=== PATIENT | male | born 1970 | race Caucasian/White ===

== ENCOUNTER 2017-12-13 20:32 | Inpatient (IN) | payer BC ==
[~2017-12-13] VITALS: Ht 175.3 cm; Wt 83.5 kg
--- NOTE | 2017-12-13 20:32 | NUR ---
TO BED 5 A 47 YO MALE PT BIBA#102 FROM HOME, PT WAS FOUND ALTERED AT HOME UNKNOWN LAST KNOWN WELL TIME. UPON ARRIVAL, PATIENT IS UNRESPONSIVE AND HYPOVENTILATING. PLACED PATIENT ON CARDIAC AND VS MONITORING. DR GOODE AT BEDSIDE TO ASSESS PATIENT. RT AT BEDSIDE. WELL. SAFETY MEASURES INITIATED.
--- NOTE | 2017-12-13 20:33 | NUR ---
STARTED A SALINE LOCK ON THE LEFT HAND G18, BLOOD DRAWN AND SENT TO LAB. PATIENT ALSO HAS AND INTACT AND PATENT IV FROM EMS AT THE RIGHT HAND G20.
--- NOTE | 2017-12-13 20:36 | NUR ---
MEDICATED PATIENT WITH PROPOFOL 100MG IVP PER DR GOODE'S ORDERS PRIOR TO INTUBATION.
--- NOTE | 2017-12-13 20:37 | NUR ---
DR GOODE PLACED A SIZE 8 ETT AT 26 CM ON THE LIP. EQUAL BREATH SOUNDS HEARD UPON AUSCULTATION AND COLOR CHANGE NOTED ON THE CAPNO.
--- NOTE | 2017-12-13 20:38 | NUR ---
PLACED PATIENT ON MECH VENT WITH SETTINGS FOLLOWS AC , RATE 16, TV 450, FIO2 80, PEEP 0. MAINTAINED PATIENT'S PATENT AIRWAY. SATTING AT 98-100% AT THIS TIME.
--- NOTE | 2017-12-13 20:40 | NUR ---
PLACED AND OGT ON PATIENT PER DR GOODE'S VERBAL ORDER, MARKED AT 65. GURGLING SOUND HEARD UPON AUSCULTATION ON THE EPIGASTRIC AREA. CLEAR WATERY SECRETIONS DRAINED. XR AT BEDSIDE TO CONFIRM ETT AND OGT PLACEMENT.
[2017-12-13 20:51] LABS: BASOPHILS # (AUTO) 0.1 /CMM (0.0-0.2); BASOPHILS % (AUTO) 1.2 % (0.0-2.0); EOSINOPHILS % (AUTO) 0.1 % (0.0-6.0); HEMATOCRIT 47 % (39-51); HEMOGLOBIN 15.9 g/dL (13.5-17.5); LYMPHOCYTES # (AUTO) 1.3 /CMM (0.8-4.8); MEAN CORPUSCULAR HEMOGLOBIN 34 PG (26.0-33.0); MEAN CORPUSCULAR HGB CONC 34 g/dl (31.0-36.0); MEAN CORPUSCULAR VOLUME 101 fL (80-96); MONOCYTES # (AUTO) 0.9 /CMM (0.1-1.30); MONOCYTES % (AUTO) 7.5 % (2.0-12.0); NEUTROPHILS # (AUTO) 9.3 /CMM (1.8-8.9); NEUTROPHILS % (AUTO) 80.2 % (43.0-81.0); PLATELET COUNT (AUTO) 63 /CMM (150-450); RDW COEFFICIENT OF VARIATION 12.2 (11.5-15.0); RED BLOOD CELL COUNT(AUTO) 4.67 MIL/uL (4.5-6.0); WHITE BLOOD COUNT (AUTO) 11.6 K/uL (4.3-11.0)
--- NOTE | 2017-12-13 20:58 | NUR ---
CALLED NURSING SUP. FOR ICU BED
[2017-12-13] MEDS ORDERED: LORAZEPAM INJ 2 MG/ML VIAL ONE (20:59)
[2017-12-13] MEDS ORDERED: ONDANSETRON HCL/PF 4 MG/2 ML VIAL ONE (20:59)
[2017-12-13 21:00] VITALS: BP 61/42
[2017-12-13] MEDS ORDERED: PROPOFOL 100 ML ONE ×2 (21:00→21:18)
[2017-12-13] MEDS ORDERED: ONDANSETRON HCL/PF 4 MG/2 ML VIAL IVP ONE (21:00)
[2017-12-13] MEDS ORDERED: IV NS 0.9% 1,000 ML BAG IV ONE ×2 (21:00)
[2017-12-13] MEDS ORDERED: NOREPINEPHRINE 8 MG in IV D5W 500 ML IV ONE (21:00)
[2017-12-13] MEDS ORDERED: NOREPINEPHRINE 4 MG/4 ML AMPUL IV ONE (21:01)
--- NOTE | 2017-12-13 21:04 | NUR ---
RT PT INTUBATED BY ER MD GOODE WITH 8.0 @ 26CM LIP. POSITIVE CO2 COLOR CHANGE. BREATHS SOUND BILATERAL WITH POSITIVE CHEST RISE/FALL. ETT PATENT AND SECURE VIA ACHOR FAST. PT PLACED ON VENT WITH NOTED SETTING PER MD VERBAL ORDERS. VENT PLUGGED IN TO RED OUTLET. AMBU BAG AT [facility]. ALARMS SET AND AUDIBLE. NO SOB OR DISTRESS NOTED.WILL CONTINUE TO MONITOR. Addendum: 12/13/17 at 2108 by ZACKARY SANCHEZ RT Amended: Links added.
[2017-12-13 21:05] LABS: INR 1.04 (0.87-1.13)
[2017-12-13 21:09] LABS: ALANINE AMINOTRANSFERASE 58 U/L (12-78); ALBUMIN 3.4 g/dL (3.4-5.0); ALKALINE PHOSPHATASE 114 U/L (46-116); ASPARTATE AMINOTRANSFERASE 145 U/L (15-37); BILIRUBIN,DIRECT 2.8 mg/dL (0.0-0.2); BILIRUBIN,TOTAL 4.5 mg/dL (0.2-1.0); CALCIUM, SERUM 9.7 mg/dL (8.5-10.1); CHLORIDE 89 mmol/L (98-107); CREATININE 3.1 mg/dL (0.6-1.3); GLUCOSE 337 mg/dL (74-106); POTASSIUM 4.4 mmol/L (3.5-5.1); SODIUM SERUM 129 mmol/L (136-145); TOTAL PROTEIN, SERUM 7.6 g/dL (6.4-8.2); UREA NITROGEN, BLOOD 18 mg/dL (7-18)
[2017-12-13 21:11] LABS: TROPONIN I < 0.017 ng/mL (0.00-0.056)
[2017-12-13 21:15] LABS: SERUM AMMONIA 192 umol/L (11-32)
[2017-12-13 21:18] LABS: CARBON DIOXIDE 9 mmol/L (21-32)
[2017-12-13 21:20] LABS: ACETAMINOPHEN 0 ug/ml (10-30); ALCOHOL, BLOOD < 5 mg/dL (0-0); SALICYLATE < 2.0 mg/dL (2.8-20.0)
[2017-12-13 21:21] LABS: THYROID STIMULATING HORMONE 14.365 uIU/mL (0.358-3.74)
--- NOTE | 2017-12-13 21:21 | NUR ---
FRIEND AND ROOMATE, JOSSELYN MELENDEZ, , PLEASE CALL HIM IF PT GETS TRANSFERRED ANYWHERE.
--- NOTE | 2017-12-13 21:29 | NUR ---
DR GOODE AT BEDSIDE TO PLACE CENTRAL LINE.
[2017-12-13 21:38] LABS: BAND % (MANUAL) 22 % (0.0-5.0); BASOPHILS % (MANUAL) 2 % (0.0-2.0); LYMPHOCYTES % (MANUAL) 14 % (16-48); MONOCYTES % (MANUAL) 9 % (0-11.0); NEUTROPHILS % (MANUAL) 53 (42-76)
--- NOTE | 2017-12-13 21:50 | NUR ---
PT TO CT.
--- NOTE | 2017-12-13 21:57 | NUR ---
TAMMY PAGED, HAILEY BLANCO MEDICATION ADMINISTRATION PROFESSIONAL
--- NOTE | 2017-12-13 22:04 | NUR ---
BACK FROM CT SCAN.
--- NOTE | 2017-12-13 22:05 | NUR ---
ICU 264
[2017-12-13 22:06] LABS: BILIRUBIN,URINE 3+ (NEGATIVE); BLOOD, URINE 2+ Ery/uL (NEGATIVE); KETONES,URINE 2+ (NEGATIVE); LEUKOCYTE ESTERASE ,URINE NEGATIVE (NEGATIVE); NITRITE, URINE NEGATIVE (NEGATIVE); PROTEIN,URINE 2+ mg/dl (NEGATIVE); UGLUCOSE TRACE mg/dL (NEGATIVE); UROBILINOGEN,URINE >=8.0 EU/dL (0.2)
[2017-12-13 22:08] LABS: APPEARANCE,URINE SLIGHTLY CLOUDY (CLEAR); COLOR,URINE DARK YELLOW (YELLOW)
[2017-12-13] MEDS ORDERED: LACTULOSE 10 G/15 ML UDC (PYXIS) GT STA (22:10)
--- NOTE | 2017-12-13 22:10 | NUR ---
I ASKED AT THIS TIME DR GOODE TO PLACE IN THE ORDERS FOR PROPOFOL DRIP.
--- NOTE | 2017-12-13 22:10 | NUR ---
CALLED LAB FOR BLOOD CX DRAW
[2017-12-13 22:15] LABS: BACTERIA,URINE Moderate /HPF (None Seen); SQUAMOUS EPITHELIAL CELL,UR Few /HPF (None Seen); WBC,URINE 0-2 /HPF (0-3)
[2017-12-13] MEDS ORDERED: PROPOFOL 200 MG/20 ML VIAL IV ONE (22:30)
[2017-12-13] MEDS ORDERED: LORAZEPAM INJ 2 MG/ML VIAL IV ONE (22:30)
[2017-12-13 22:40] LABS: ABG BASE EXCESS -14.6 mmol/L; ABG PCO2 35.2 mmHg (35.0-45.0); ABG PH 7.179 (7.350-7.450); ABG PO2 239.6 mmHg (75.0-100.0); AaDO2 293.8 mmHg; COHb 0.3 % (0.5-1.5); MetHb 0.6 % (0.0-1.5); O2Hb 98.1 % (94.0-97.0); PEEP,BG 0 cm H2O; SITE, ABG Right Radial; VENT MODE, BG ac 16/450/80%/+0; VT, ABG 450 mL
--- NOTE | 2017-12-13 22:45 | NUR ---
REPORT GIVEN TO MEDINA NASH FOR ICU ADMSSION AND ASHLEE.
[2017-12-13] MEDS ORDERED: LACTULOSE 10 G/15 ML UDC (PYXIS) ONE (22:56)
[2017-12-13] MEDS ORDERED: Thiamine 100 MG/ML VIAL ONE (22:56)
[2017-12-13] MEDS ORDERED: LACTULOSE 10 G/15 ML UDC (PYXIS) NG PRN (23:00)
[2017-12-13] MEDS ORDERED: Thiamine 100 MG in IV D5W 50 ML IV SCH (23:00)
[2017-12-13] MEDS ORDERED: ACETAMINOPHEN 650 MG/SUPP.RECT RC PRN (23:00)
[2017-12-13] MEDS ORDERED: Z GUARD REMEDY 2 OZ OINT TP PRN (23:00)
[2017-12-13] MEDS ORDERED: ENOXAPARIN SODIUM 40 MG/0.4 ML DISP.SYRIN SQ SCH (23:00)
[2017-12-13] MEDS ORDERED: NOREPINEPHRINE 8 MG in IV D5W 500 ML IV PRN (23:00)
[2017-12-13] MEDS ORDERED: Thiamine 100 MG in IV D5W 50 ML IV ONE (23:28)
--- NOTE | 2017-12-13 23:51 | NUR ---
TRANSFERRED PATIENT TO ICU 264 VIA ALS PROTOCOL, NO INCIDENT NOTED.
[2017-12-13 23:54] VITALS: BP_SYST 100; BP_SYST 108; BP_DIAS 43; BP_DIAS 58
[2017-12-14] VITALS (72 sets, daily range): BP systolic 68–123; BP diastolic 42–72
--- NOTE | 2017-12-14 | NUR ---
RT RECEIVED PT INTUBATED ON [facility] VENT WITH NOTED SETTINGS. ETT 8.0 MARKED 26CM @ THE LIP. MAJOR LEAGUE BASEBALL PLAYER DONE AND ETT SECURE W/ ANCHOR FAST. BILATERAL B/S. VENTS ALARMS CHECKED AND AUDIBLE. VENT PLUGGED IN RED OUTLET. SX WITH SML WHITE WITH BLOOD TINGED SECRETIONS. AMBU BAG NOTED AT THE [facility]. NO RESP DISTRESS NOTED AT THIS TIME WILL CONTINUE TO MONITOR T/O SHIFT
[2017-12-14] MEDS: IV NS 0.9% 1,000 ML IV PRN ×6 (00:02→17:46)
[2017-12-14] MEDS ORDERED: Thiamine 100 MG/ML VIAL ONE (00:17)
[2017-12-14] MEDS ORDERED: ENOXAPARIN SODIUM 40 MG/0.4 ML DISP.SYRIN SQ ONE (00:18)
[2017-12-14] MEDS: PROPOFOL 100 ML IV PRN ×2 (00:22→03:22)
[2017-12-14 00:30] LABS: CREATINE KINASE MB 2.9 ng/mL (0-3.6)
[2017-12-14] MEDS ORDERED: NOREPINEPHRINE 16 MG in IV D5W 500 ML IV PRN ×2 (00:30→14:00)
[2017-12-14] MEDS ORDERED: NOREPINEPHRINE 8 MG in IV D5W 500 ML IV PRN ×4 (01:00)
--- NOTE | 2017-12-14 01:30 | NUR ---
RN NOTES ADMITTED 47 Y/O MALE PATIENT FROM ER VIA STRETCHER AWAKE AND RESTLESS. WITH ETT 8/ 26CM @ LIP CONNECTED TO VENT SETTING IS AC 16 TV 450 FIO2 80% NO PEEP NO HISTORY TAKEN AND NKDA. PLACED ON TELE MONITOR REVEALS ST HR 122. RECEIVED FROM ER WITH PROPOFOL @ 25 MCG/KG/MIN INCREASED TO 35MCG ON LEFT HAND AND LEVOPHED @ 12MCG/MIN ON RIGHT HAND INTACT AND PATENT. NS BOLUS STARTED ON LEFT HAND . NO ACUTE RESP DISTRESS. SKIN IS INTACT. KEPT PT CLEAN AND DRY. KEPT COMFORTABLE POSITION
[2017-12-14] MEDS ORDERED: ONDANSETRON HCL/PF 4 MG/2 ML VIAL ONE (02:16)
[2017-12-14] MEDS: ONDANSETRON HCL/PF 4 MG/2 ML VIAL IVP PRN (02:29)
[2017-12-14] MEDS ORDERED: NOREPINEPHRINE 4 MG/4 ML AMPUL IV ONE ×2 (02:51)
[2017-12-14 03:14] LABS: CALCIUM, SERUM 6.9 mg/dL (8.5-10.1); CREATININE 2.5 mg/dL (0.6-1.3)
[2017-12-14] MEDS ORDERED: PROPOFOL 100 ML ONE (03:17)
[2017-12-14 03:30] LABS: POTASSIUM 2.4 mmol/L (3.5-5.1)
[2017-12-14 03:31] LABS: MAGNESIUM 1.1 mg/dL (1.8-2.4); PHOSPHORUS 0.4 mg/dL (2.5-4.9)
--- NOTE | 2017-12-14 04:00 | NUR ---
RN NOTES LAB CALLED AND INFORMED REGARDING CRITICAL LAB RESULT NA 113 K 2.4 GLUCOSE 770 CHLORIDE 83 CALCIUM 6.9 PHOS[address] 0[address] BLANCO WITH ORDER TO REPEAT THE LAB AND DRAW IT ON PT LEGS. CHARGE NURSE AWARE.
[2017-12-14 05:15] LABS: ALBUMIN 2.9 g/dL (3.4-5.0); BILIRUBIN,TOTAL 6.5 mg/dL (0.2-1.0); CALCIUM, SERUM 8.3 mg/dL (8.5-10.1); CREATININE 2.6 mg/dL (0.6-1.3); MAGNESIUM 1.3 mg/dL (1.8-2.4); POTASSIUM 3.3 mmol/L (3.5-5.1); TOTAL PROTEIN, SERUM 6.4 g/dL (6.4-8.2)
[2017-12-14 05:21] LABS: PHOSPHORUS 0.6 mg/dL (2.5-4.9)
--- NOTE | 2017-12-14 05:30 | NUR ---
RN NOTES CALLED AND SPOKE TO DR. BLANCO INFORMED ABOUT THE LATEST LAB RESULT NA 130 K3.3 CL 97 CO2 17 ANION GAP 19 GLUCOSE 191 CA 8.3 BUN 18 CRE 2.6 MAG1.3 AND PHOS AND CRITICAL VALUES OF PHOS 0.6 WITH ORDER TO GIVE NEUTRAPHOS 4 PACKET VIA NGT AND MAGNESIUM IV 4 BAGS NOTED AND ACKNOWLEDGE ORDERS.
[2017-12-14 05:43] LABS: BASOPHILS % (AUTO) 0.1 % (0.0-2.0); HEMATOCRIT 41 % (39-51); HEMOGLOBIN 14.7 g/dL (13.5-17.5); LYMPHOCYTES # (AUTO) 0.8 /CMM (0.8-4.8); LYMPHOCYTES % (AUTO) 6.3 % (20.0-44.0); MEAN CORPUSCULAR HEMOGLOBIN 35 PG (26.0-33.0); MEAN CORPUSCULAR HGB CONC 36 g/dl (31.0-36.0); MEAN CORPUSCULAR VOLUME 98 fL (80-96); MONOCYTES # (AUTO) 0.9 /CMM (0.1-1.30); MONOCYTES % (AUTO) 7.2 % (2.0-12.0); NEUTROPHILS % (AUTO) 86.4 % (43.0-81.0); PLATELET COUNT (AUTO) 68 /CMM (150-450); RDW COEFFICIENT OF VARIATION 12.4 (11.5-15.0); RED BLOOD CELL COUNT(AUTO) 4.18 MIL/uL (4.5-6.0); WHITE BLOOD COUNT (AUTO) 12.8 K/uL (4.3-11.0)
--- NOTE | 2017-12-14 05:52 | NUR ---
RN NOTES CALLED [facility]ASS[facility] (MOM) AND GOT CONSENT FOR PICC LINE INSERTION WITNESS BY JOSSELYN HODGE RN
[2017-12-14 06:10] LABS: THYROID STIMULATING HORMONE 3.124 uIU/mL (0.358-3.74)
[2017-12-14 06:23] LABS: BAND % (MANUAL) 17 % (0.0-5.0); LYMPHOCYTES % (MANUAL) 6 % (16-48); METAMYELOCYTES % 1 % (0-0); MYELOCYTES % 1 % (0-0)
[2017-12-14 06:24] LABS: MONOCYTES % (MANUAL) 5 % (0-11.0); NEUTROPHILS % (MANUAL) 70 (42-76)
[2017-12-14] MEDS ORDERED: NEUTRA PHOS 1 POWD.PACKET NG ONE (06:30)
[2017-12-14] MEDS ORDERED: NEUTRA PHOS 1 POWD.PACKET ONE (06:44)
[2017-12-14] MEDS ORDERED: ENOXAPARIN SODIUM 40 MG/0.4 ML DISP.SYRIN SQ SCH (06:58)
[2017-12-14] MEDS: PROPOFOL 10MG/ML 50ML 50 ML IV PRN ×12 (07:26→22:58)
[2017-12-14] MEDS: Magnesium 1GM/D5W 100ML PREMIX 100 ML IV SCH ×4 (07:33→10:36)
--- NOTE | 2017-12-14 07:40 | NUR ---
RN NOTES PT STILL SEDATED. ETT AND VENT SETTING TOLERATED WELL. CONTINUE WITH DIPRIVAN AND PROPOFOL AT THIS TIME. NO ASE SHOWS. AFEBRILE. ALL DUE MEDICINE GIVEN ORDERED. KEPT PT CLEAN AND DRY. RESTRAINT KEPT ON IN SAULO. SOFT WRIST EXT. ENDORSED CONTINUITY OF CARE TO AM NURSE.
[2017-12-14 08:42] LABS: ABG BASE EXCESS -11.2 mmol/L; ABG OXYGEN SATURATION 98.1 % (92.0-98.5); ABG PCO2 24.3 mmHg (35.0-45.0); ABG PH 7.332 (7.350-7.450); ABG PO2 128.8 mmHg (75.0-100.0); AaDO2 128.5 mmHg; COHb 0.3 % (0.5-1.5); MetHb 1.1 % (0.0-1.5); O2Hb 96.7 % (94.0-97.0); PEEP,BG 0 cm H2O; SITE, ABG Right Radial
[2017-12-14] MEDS: RIFAXIMIN 550 MG TABLET PO SCH ×2 (09:43→16:14)
[2017-12-14] MEDS: LORAZEPAM INJ 2 MG/ML VIAL IV PRN ×3 (09:43→23:03)
[2017-12-14 10:12] LABS: CALCIUM, SERUM 7.5 mg/dL (8.5-10.1); CREATININE 2.4 mg/dL (0.6-1.3); MAGNESIUM 1.8 mg/dL (1.8-2.4); POTASSIUM 3.5 mmol/L (3.5-5.1)
[2017-12-14 10:13] LABS: PHOSPHORUS 0.3 mg/dL (2.5-4.9)
[2017-12-14] MEDS ORDERED: PANT40TA2 PO (12:30)
[2017-12-14] MEDS ORDERED: POTASSIUM PHOSPHATE MM IV SCH (12:30)
[2017-12-14] MEDS ORDERED: FOLI1TAB16 PO (12:30)
[2017-12-14] MEDS ORDERED: POTASSIUM PHOSPHATE MM 5 MMOL in IV D5W 100 ML IV SCH (12:30)
[2017-12-14] MEDS ORDERED: ONDA4TAB8 PO (12:30)
[2017-12-14] MEDS ORDERED: D5W IV SCH (12:30)
[2017-12-14] MEDS ORDERED: TEMA7.5C12 PO (12:30)
[2017-12-14 12:41] LABS: APPEARANCE,URINE CLOUDY (CLEAR); BILIRUBIN,URINE 3+ (NEGATIVE); BLOOD, URINE 3+ Ery/uL (NEGATIVE); COLOR,URINE YELLOW (YELLOW); KETONES,URINE 1+ (NEGATIVE); LEUKOCYTE ESTERASE ,URINE NEGATIVE (NEGATIVE); NITRITE, URINE POSITIVE (NEGATIVE); PH,URINE 5.5 (5.0-8.0); PROTEIN,URINE 2+ mg/dl (NEGATIVE); UGLUCOSE TRACE mg/dL (NEGATIVE)
[2017-12-14 13:00] LABS: BACTERIA,URINE Few /HPF (None Seen); RBC,URINE 21-50 /HPF (0-2); SQUAMOUS EPITHELIAL CELL,UR Few /HPF (None Seen)
[2017-12-14 13:01] LABS: URINE AMORPHOUS URATE Many /HPF (None Seen)
[2017-12-14 13:10] LABS: EOSINOPHIL,URINE None Seen
[2017-12-14] MEDS: POTASSIUM PHOSPHATE MM 15 MMOL in IV D5W 250 ML IV SCH ×2 (13:14→17:31)
[2017-12-14] MEDS: NOREPINEPHRINE 16 MG in IV D5W 500 ML IV PRN (14:36)
[2017-12-14 15:49] LABS: CALCIUM, SERUM 6.9 mg/dL (8.5-10.1); POTASSIUM 3.6 mmol/L (3.5-5.1)
[2017-12-14] MEDS: ACETAMINOPHEN 325 MG TABLET PO PRN ×2 (16:14→22:41)
[2017-12-14 16:37] LABS: CREATININE 2.1 mg/dL (0.6-1.3)
[2017-12-14 16:39] LABS: PHOSPHORUS 0.6 mg/dL (2.5-4.9)
--- NOTE | 2017-12-14 17:00 | NUR ---
RT NOTE: PATIENT RECEIVED ORALLY INTUBATED WITH 8.0 ETT SECURED AT 26 CM MID LIP (BITE BLOCK IN PLACE)ON ESPRIT VENT. ALARMS VERIFIED AND AUDIBLE. SUCTIONED AND LAVAGED SMALL-MODERATE AMOUNT OF THIN PEREZ/BLOOD TINGED SECRETIONS. VENT PLUGGED INTO RED OUTLET. AMBU BAG AT [facility].
--- NOTE | 2017-12-14 20:30 | NUR ---
PATIENT RECEIVED ORALLY INTUBATED WITH 8.0 ETT SECURED AT 26 CM MID LIP ON ESPRIT VENT. ALARMS VERIFIED AND AUDIBLE. SUCTIONED AND LAVAGED SMALL-MODERATE AMOUNT OF THIN PEREZ/BLOOD TINGED SECRETIONS. VENT PLUGGED INTO RED OUTLET. AMBU BAG AT [facility]. Addendum: 12/14/17 at 2030 by ARLETH BEJARANO RT Amended: Links added.
[2017-12-14] MEDS: POTASSIUM PHOSPHATE MM 5 MMOL in IV D5W 100 ML IV SCH ×2 (20:52→23:06)
[2017-12-14] MEDS ORDERED: Thiamine 100 MG in IV D5W 50 ML IV ONE (22:14)
[2017-12-14] MEDS ORDERED: RIFAXIMIN 550 MG TABLET PO SCH (22:30)
[2017-12-14 22:44] LABS: ABG BASE EXCESS -11.4 mmol/L; ABG OXYGEN SATURATION 98.3 % (92.0-98.5); ABG PCO2 27.8 mmHg (35.0-45.0); ABG PH 7.302 (7.350-7.450); ABG PO2 144.6 mmHg (75.0-100.0); AaDO2 72.6 mmHg; COHb 0.3 % (0.5-1.5); MetHb 0.7 % (0.0-1.5); O2Hb 97.3 % (94.0-97.0); PEEP,BG 0 cm H2O; SITE, ABG Left Radial; VENT MODE, BG VENT AC; VT, ABG 450 mL
[2017-12-15] VITALS (93 sets, daily range): BP systolic 78–120; BP diastolic 38–72
[2017-12-15] MEDS: IV NS 0.9% 1,000 ML IV PRN ×4 (01:58→22:00)
[2017-12-15] MEDS: PROPOFOL 10MG/ML 50ML 50 ML IV PRN ×3 (01:58→08:25)
[2017-12-15] MEDS ORDERED: LORAZEPAM INJ 2 MG/ML VIAL ONE (04:14)
[2017-12-15] MEDS: LORAZEPAM INJ 2 MG/ML VIAL IV PRN (04:16)
[2017-12-15 04:59] LABS: BASOPHILS % (AUTO) 0.3 % (0.0-2.0); EOSINOPHILS % (AUTO) 0.1 % (0.0-6.0); HEMATOCRIT 35 % (39-51); HEMOGLOBIN 13.4 g/dL (13.5-17.5); LYMPHOCYTES # (AUTO) 0.9 /CMM (0.8-4.8); LYMPHOCYTES % (AUTO) 8.4 % (20.0-44.0); MEAN CORPUSCULAR HEMOGLOBIN 37 PG (26.0-33.0); MEAN CORPUSCULAR HGB CONC 38 g/dl (31.0-36.0); MEAN CORPUSCULAR VOLUME 98 fL (80-96); MONOCYTES # (AUTO) 1.1 /CMM (0.1-1.30); MONOCYTES % (AUTO) 9.8 % (2.0-12.0); NEUTROPHILS # (AUTO) 8.7 /CMM (1.8-8.9); NEUTROPHILS % (AUTO) 81.4 % (43.0-81.0); PLATELET COUNT (AUTO) 74 /CMM (150-450); RDW COEFFICIENT OF VARIATION 12.7 (11.5-15.0); RED BLOOD CELL COUNT(AUTO) 3.59 MIL/uL (4.5-6.0); WHITE BLOOD COUNT (AUTO) 10.7 K/uL (4.3-11.0)
[2017-12-15 05:22] LABS: ALANINE AMINOTRANSFERASE < 6 U/L (12-78); ALBUMIN 2.4 g/dL (3.4-5.0); ALKALINE PHOSPHATASE 83 U/L (46-116); ASPARTATE AMINOTRANSFERASE 0 U/L (15-37); BILIRUBIN,TOTAL 6.9 mg/dL (0.2-1.0); CALCIUM, SERUM 6.7 mg/dL (8.5-10.1); CARBON DIOXIDE 14 mmol/L (21-32); CHLORIDE 94 mmol/L (98-107); CREATININE 2.7 mg/dL (0.6-1.3); GLUCOSE 208 mg/dL (74-106); MAGNESIUM 1.7 mg/dL (1.8-2.4); POTASSIUM 3.8 mmol/L (3.5-5.1); SODIUM SERUM 125 mmol/L (136-145); TOTAL PROTEIN, SERUM 5.8 g/dL (6.4-8.2); UREA NITROGEN, BLOOD 21 mg/dL (7-18)
[2017-12-15 05:25] LABS: CREATINE KINASE, TOTAL 995 U/L (39-308)
[2017-12-15 05:49] LABS: CREATINE KINASE MB 8.9 ng/mL (0-3.6)
[2017-12-15 06:01] LABS: BAND % (MANUAL) 9 % (0.0-5.0); LYMPHOCYTES % (MANUAL) 7 % (16-48); MONOCYTES % (MANUAL) 10 % (0-11.0); NEUTROPHILS % (MANUAL) 71 (42-76)
[2017-12-15 06:02] LABS: METAMYELOCYTES % 3 % (0-0)
--- NOTE | 2017-12-15 07:00 | NUR ---
ICU INITIAL NOTE RECEIVED REPORT FROM CHARITY CARRANZA, PT WAS RECEIVED SEDATION, INTUBATED, UNABLE TO FOLLOW COMMANDS, UNABLE TO MOVE EXTREMITIES, UNABLE TO TRACK, RESPONDS TO PAIN AND TACTILE STIMULI AT THIS TIME, PT HAS ETT 8.0/26 LIPLINE AC 20 TV 450 FIO2 35% PEEP 0, SATING WELL, NO S/S OF RESP.DISTRESS OR SOB NOTED AT THIS TIME, BREATHING IS UNLABORED AND EVEN, PT SUCTIONED, ORAL CARE PROVIDED,PT IS ON BEDSIDE MONITOR SHOWING SR IN 90'S, NO S/S OF CHEST PAIN OR DISCOMFORT AT THIS TIME, PT HAS OGT, CLAMPED AT THIS TIME, INTACT/PATENT , FLUSHING WELL, PT HAS F/C DRAINING URINE TO GRAVITY, PT HAS MECHE PICC LINE, L HAND #18G, C/D/I/PATENT, FLUSHING WELL, RUNNING DIPRIVAN @ 30MCG/MIN, NS @ 150ML/HR, LEVO @8MCG/MIN, NO S/S OF INFECTION/ INFILTRATION NOTED AT THIS TIME, ALL SAFETY MEASURES IN PLACE AT ALL TIMES, CALL LIGHT WITHIN EASY REACH, WILL MONITOR PT CLOSELY FOR CHANGES
[2017-12-15] MEDS: RIFAXIMIN 550 MG TABLET PO SCH ×2 (08:26→17:29)
--- NOTE | 2017-12-15 08:30 | NUR ---
icu note- pt father britt hurtado sr called, updated on pt condition, all questions and concerns answered
[2017-12-15] MEDS: NOREPINEPHRINE 16 MG in IV D5W 500 ML IV PRN (08:42)
--- NOTE | 2017-12-15 08:50 | NUR ---
sedation vacation- diprivan titrated per protocol, diprivan on hold, pt is able to open eyes, able to squeeze hands and wiggle toes, pt is still unable to track at this time, pt is able to squeeze hands for simple questions, bilateral wrist restraints remain in place for pt safety, will cont. to monitor pt closely. family at bedside, family educated.
[2017-12-15 09:31] LABS: ABG BASE EXCESS -10.4 mmol/L; ABG OXYGEN SATURATION 96.7 % (92.0-98.5); ABG PCO2 26.6 mmHg (35.0-45.0); ABG PH 7.334 (7.350-7.450); ABG PO2 95.9 mmHg (75.0-100.0); AaDO2 122.7 mmHg; COHb 0.3 % (0.5-1.5); MetHb 0.4 % (0.0-1.5); PEEP,BG 0 cm H2O; SITE, ABG Right Radial; VENT MODE, BG AC 20 450 35% +0; VT, ABG 450 mL
--- NOTE | 2017-12-15 09:47 | NUR ---
icu note- all family is at bedside, updated on condition, all questions and concerns answered. all needs met
[2017-12-15] MEDS ORDERED: Magnesium 1GM/D5W 100ML PREMIX 1 G in PREMIX 1 EA IV SCH (10:30)
[2017-12-15] MEDS ORDERED: POTASSIUM PHOSPHATE MM 15 MMOL in IV D5W 250 ML IV SCH (10:30)
--- NOTE | 2017-12-15 10:39 | NUR ---
icu note- per oc mother request, to restrict vistors to only pt's son ravindra, sister, brother, father. informed security, and md aware. faxed record request to mekhi herron
--- NOTE | 2017-12-15 11:10 | NUR ---
Pt terminally extubated per Beatris azlu RN notified. Family at bedside. Addendum: 12/15/17 at 1113 by JALIL ORR RT Amended: Links added. Addendum: 12/15/17 at 1323 by JALIL ORR RT Wrong pt. Supposed to be 265
--- NOTE | 2017-12-15 11:11 | NUR ---
Wrong note on 1110 264-1.
[2017-12-15] MEDS: Magnesium 1GM/D5W 100ML PREMIX 100 ML IV SCH ×2 (11:41→12:29)
[2017-12-15] MEDS: POTASSIUM PHOSPHATE MM 7.5 MMOL in IV D5W 100 ML IV SCH ×2 (13:30→16:28)
--- NOTE | 2017-12-15 20:08 | NUR ---
PATIENT RECEIVED ORALLY INTUBATED WITH 8.0 ETT SECURED AT 26 CM MID LIP ON VENT. ALARMS VERIFIED AND AUDIBLE. SUCTIONED AND LAVAGED MODERATE-LARGE AMOUNT OF THICK PEREZ SECRETIONS. VENT PLUGGED INTO RED OUTLET. AMBU BAG AT [facility]. Addendum: 12/16/17 at 0423 by ARLETH BEJARANO RT Amended: Links added.
[2017-12-15] MEDS: ENOXAPARIN SODIUM 40 MG/0.4 ML DISP.SYRIN SQ SCH (21:51)
[2017-12-16] VITALS (42 sets, daily range): BP systolic 107–137; BP diastolic 58–77
--- NOTE | 2017-12-16 01:10 | NUR ---
ICU/STEAM CONDITIONER OPERATOR ATIVAN 2MG GIVEN IVP BY CHARGE NURSE, AFTER CHARGE NURSE NOTIFIED ABOUT INCREASE HEART RATE AND RESPIRATORY RATE.
[2017-12-16] MEDS: LORAZEPAM INJ 2 MG/ML VIAL IV PRN ×2 (01:13→08:14)
--- NOTE | 2017-12-16 02:10 | NUR ---
ICU/TANK CAR RECONDITIONER PT HAD TEMP OF 100.6, TYLENOL 650MG GIVEN VIA N/G TUBE. COOLING MEASURES STATED. PT WAS TURNED AND REPOSITIONED FOR COMFORT AND CARE.
[2017-12-16] MEDS: ACETAMINOPHEN 325 MG TABLET PO PRN ×2 (02:27→22:00)
--- NOTE | 2017-12-16 03:20 | NUR ---
ICU/DYNAMITE PACKING MACHINE OPERATOR LEVO OFF AT THIS TIME BP IS STABLE.WILL CONTINUE TO MONITOR THIS PT
[2017-12-16] MEDS: IV NS 0.9% 1,000 ML IV PRN ×3 (05:16→22:26)
[2017-12-16 05:47] LABS: BASOPHILS % (AUTO) 0.5 % (0.0-2.0); EOSINOPHILS # (AUTO) 0.1 /CMM (0.0-0.7); EOSINOPHILS % (AUTO) 1.3 % (0.0-6.0); HEMATOCRIT 34 % (39-51); HEMOGLOBIN 11.9 g/dL (13.5-17.5); LYMPHOCYTES # (AUTO) 0.5 /CMM (0.8-4.8); LYMPHOCYTES % (AUTO) 8.1 % (20.0-44.0); MEAN CORPUSCULAR HEMOGLOBIN 34 PG (26.0-33.0); MEAN CORPUSCULAR HGB CONC 35 g/dl (31.0-36.0); MEAN CORPUSCULAR VOLUME 98 fL (80-96); MONOCYTES # (AUTO) 0.7 /CMM (0.1-1.30); MONOCYTES % (AUTO) 12.3 % (2.0-12.0); NEUTROPHILS # (AUTO) 4.4 /CMM (1.8-8.9); NEUTROPHILS % (AUTO) 77.8 % (43.0-81.0); PLATELET COUNT (AUTO) 72 /CMM (150-450); RDW COEFFICIENT OF VARIATION 13.1 (11.5-15.0); RED BLOOD CELL COUNT(AUTO) 3.46 MIL/uL (4.5-6.0); WHITE BLOOD COUNT (AUTO) 5.6 K/uL (4.3-11.0)
[2017-12-16 05:50] LABS: CALCIUM, SERUM 7.1 mg/dL (8.5-10.1); CREATININE 2.2 mg/dL (0.6-1.3); MAGNESIUM 2.2 mg/dL (1.8-2.4); POTASSIUM 3.2 mmol/L (3.5-5.1)
[2017-12-16 06:18] LABS: BAND % (MANUAL) 4 % (0.0-5.0); EOSINOPHILS % (MANUAL) 2 % (0-4); LYMPHOCYTES % (MANUAL) 9 % (16-48); METAMYELOCYTES % 1 % (0-0); MONOCYTES % (MANUAL) 13 % (0-11.0); MYELOCYTES % 1 % (0-0); NEUTROPHILS % (MANUAL) 70 (42-76)
--- NOTE | 2017-12-16 06:20 | NUR ---
ICU/PROMOTIONS ASSOCIATE PT'S FAMILY MEMBER CALLED, FATHER OF PT NAMED CURTIS. THE FATHER WAS ABLE TO VERIFY THE DATE OF AND GIVEN NAME OF MOTHER. GAVE SMALL UPDATE TO HIM. ASKED ABOUT VISITING HOURS WELL. PT'S FATHER WAS DEFERRED TO TALK WITH MOTHER.
--- NOTE | 2017-12-16 07:00 | NUR ---
ICU INITIAL NOTE RECEIVED REPORT FROM EMILIANO, PT WAS RECEIVED LETHARGIC, INTUBATED, ABLE TO FOLLOW SIMPLE COMMANDS , ABLE TO SQUEEZE HANDS AND WIGGLE TOES, UNABLE TO TRACK AT THIS TIME, RESPONDS TO NAME,PAIN AND TACTILE STIMULI AT THIS TIME, PT HAS ETT 8.0/26 LIPLINE AC 20 TV 450 FIO2 35% PEEP 0, SATING WELL, NO S/S OF RESP.DISTRESS OR SOB NOTED AT THIS TIME, BREATHING IS UNLABORED AND EVEN, PT SUCTIONED, ORAL CARE PROVIDED,PT IS ON BEDSIDE MONITOR SHOWING ST IN THE 100'S, NO S/S OF CHEST PAIN OR DISCOMFORT AT THIS TIME, PT HAS OGT, CLAMPED AT THIS TIME, INTACT/PATENT , FLUSHING WELL, PT HAS F/C DRAINING URINE TO GRAVITY, PT HAS MECHE PICC LINE, L HAND #18G, C/D/I/PATENT, FLUSHING WELL, RUNNING NS @ 150ML/HR, BILATERAL WRIST RESTRAINTS IN PLACE AT THIS TIME FOR PT SAFETY, RELEASED AND SKIN CHECK COMPLETED, NO S/S OF INFECTION/ INFILTRATION NOTED AT THIS TIME, ALL SAFETY MEASURES IN PLACE AT ALL TIMES, CALL LIGHT WITHIN EASY REACH, WILL MONITOR PT CLOSELY FOR CHANGES
[2017-12-16 07:55] LABS: COHb 0.3 % (0.5-1.5)
[2017-12-16 07:56] LABS: ABG BASE EXCESS -9.2 mmol/L; ABG OXYGEN SATURATION 96.7 % (92.0-98.5); ABG PCO2 30.3 mmHg (35.0-45.0); ABG PH 7.328 (7.350-7.450); ABG PO2 100.9 mmHg (75.0-100.0); AaDO2 113.4 mmHg; MetHb 0.3 % (0.0-1.5); O2Hb 96.1 % (94.0-97.0); PEEP,BG 0 cm H2O; SITE, ABG Right Radial; VENT MODE, BG AC 20 450 35% +0; VT, ABG 450 mL
[2017-12-16] MEDS: RIFAXIMIN 550 MG TABLET PO SCH ×2 (08:07→17:08)
--- NOTE | 2017-12-16 08:22 | NUR ---
icu note- pt noted with increased respiration, asked pt if hes having anxiety, pt squeezed my hand yes. ativan 2mg ivp given
--- NOTE | 2017-12-16 09:24 | NUR ---
icu note- oc mother requested homer medications, medications given to mother
--- NOTE | 2017-12-16 09:58 | NUR ---
icu note- family at bedside, updated on pt's condition, answered all questions and concerns. dr. hooker at bedside.
[2017-12-16] MEDS ORDERED: [UNRECOGNIZED DRUG - OTHER] NG PRN (11:00)
[2017-12-16 11:11] LABS: ALBUMIN 2.2 g/dL (3.4-5.0); BILIRUBIN,DIRECT 6.1 mg/dL (0.0-0.2); BILIRUBIN,TOTAL 7.1 mg/dL (0.2-1.0); TOTAL PROTEIN, SERUM 5.3 g/dL (6.4-8.2)
[2017-12-16] MEDS: POTASSIUM CL. PREMIX PERIPHER. 50 ML IV SCH ×3 (11:12→13:43)
[2017-12-16] MEDS ORDERED: FIBERSOURCE HN 1,000 ML BOTTLE GT PRN (12:00)
[2017-12-16 15:09] LABS: PTH, INTACT 9 pg/mL (15-65)
[2017-12-16 15:17] LABS: INR 1.12 (0.87-1.13)
[2017-12-16] MEDS: LACTULOSE 10 G/15 ML UDC (PYXIS) PO SCH ×2 (17:08→23:54)
--- NOTE | 2017-12-16 18:36 | NUR ---
RT NOTE PT IN STABLE CONDITION. PT MECHANICALLY VENTILATED VIA 8.0 ETT 26 CM AT LIP. SETTINGS PRESCRIBED. ALARMS SET PER PROTOCOL AND AUDIBLE. VENT PLUGGED IN TO RED OUTLET. AMBU BAG AT BED SIDE. NO DISTRESS NOTED. Addendum: 12/16/17 at 1837 by PEDRO OLIVO RT Amended: Links added.
[2017-12-16] MEDS: ENOXAPARIN SODIUM 40 MG/0.4 ML DISP.SYRIN SQ SCH (21:10)
--- NOTE | 2017-12-16 22:10 | NUR ---
ICU/STAFFING ANALYST PT HAS A TEMP 100.6, GAVE TYLENOL 650MG VIA O/G TUBE. PT WAS TURNED AND REPOSITIONED FOR CARE AND COMFORT.
[2017-12-16] MEDS: ONDANSETRON HCL/PF 4 MG/2 ML VIAL IVP PRN (23:53)
[2017-12-17] VITALS (39 sets, daily range): BP systolic 116–148; BP diastolic 64–101
--- NOTE | 2017-12-17 00:30 | NUR ---
ICU/PROGRAM COUNSELOR PT APPEARED TO BE GAGGING IN A MOTION TO VOMIT WHEN LAST SUCTIONED, ZOFRAN 2MG IVP GIVEN AT THIS TIME BY CHARGE NURSE. PT WAS THEN TURNED AND REPOSITIONED FOR COMFORT AND CARE.
--- NOTE | 2017-12-17 02:09 | NUR ---
PATIENT RECEIVED ORALLY INTUBATED WITH 8.0 ETT SECURED AT 26 CM MID LIP ON VENT. ALARMS SET AND AUDIBLE THROUGH OUT UNIT. PT SUCTIONED AND LAVAGED FOR MODERATE-LARGE AMOUNT OF THICK PEREZ SECRETIONS. VENT PLUGGED INTO RED OUTLET. AMBU BAG AT [facility]. WILL CONT TO MONITOR Addendum: 12/17/17 at 0211 by JOSSELYN HANSON RT Amended: Links added.
--- NOTE | 2017-12-17 02:30 | NUR ---
ICU/TREE GIRDLER PT'S N/G TUBE FEEDING RESIDUAL WAS 260ML, FEEDING WAS TURNED OFF. WHEN PT WAS ASKED IF HE HAD PAIN IN HIS STOMACH PT NODDED HIS HEAD SAID YES. PT WAS GIVEN LACTULOSE.
[2017-12-17] MEDS: IV NS 0.9% 1,000 ML IV PRN ×3 (03:29→17:29)
[2017-12-17 05:08] LABS: CALCIUM, SERUM 7.7 mg/dL (8.5-10.1); CREATININE 1.4 mg/dL (0.6-1.3)
[2017-12-17 05:20] LABS: MAGNESIUM 1.7 mg/dL (1.8-2.4); PHOSPHORUS 3.6 mg/dL (2.5-4.9)
[2017-12-17 05:35] LABS: POTASSIUM 2.8 mmol/L (3.5-5.1)
[2017-12-17 05:50] LABS: BASOPHILS % (AUTO) 0.2 % (0.0-2.0); EOSINOPHILS # (AUTO) 0.1 /CMM (0.0-0.7); EOSINOPHILS % (AUTO) 1.5 % (0.0-6.0); HEMATOCRIT 32 % (39-51); HEMOGLOBIN 11.3 g/dL (13.5-17.5); LYMPHOCYTES # (AUTO) 0.7 /CMM (0.8-4.8); LYMPHOCYTES % (AUTO) 8.4 % (20.0-44.0); MEAN CORPUSCULAR HEMOGLOBIN 35 PG (26.0-33.0); MEAN CORPUSCULAR HGB CONC 36 g/dl (31.0-36.0); MEAN CORPUSCULAR VOLUME 99 fL (80-96); MONOCYTES # (AUTO) 1.6 /CMM (0.1-1.30); MONOCYTES % (AUTO) 18.8 % (2.0-12.0); NEUTROPHILS # (AUTO) 5.9 /CMM (1.8-8.9); NEUTROPHILS % (AUTO) 71.1 % (43.0-81.0); PLATELET COUNT (AUTO) 85 /CMM (150-450); RDW COEFFICIENT OF VARIATION 12.4 (11.5-15.0); RED BLOOD CELL COUNT(AUTO) 3.23 MIL/uL (4.5-6.0); WHITE BLOOD COUNT (AUTO) 8.3 K/uL (4.3-11.0)
--- NOTE | 2017-12-17 06:31 | NUR ---
ICU/DAY HABILITATION SUPERVISOR POTASSIUM IS 2.8, MACHINE ENGINEER JOI WAS CALLED. GAVE ORDER FOR 60MEQ OF POTASSIUM. PT WAS TURNED AND REPOSITIONED FOR COMFORT AND CARE.
--- NOTE | 2017-12-17 07:53 | NUR ---
PT RECEIVED ON VENT SUPPORT VIA ET TUBE WITH PARAMETERS BELLOW ORDER: AC 20 VT 450 FIO2 35% NO PEEP B/S CLEAR BILATERAL. VENT PLUGGED INTO RED OUTLET WITH ALARMS ON AND FUNCTIONING. WANG @ [facility]. Addendum: 12/17/17 at 1730 by PITO WOLFE RT Amended: Links added.
--- NOTE | 2017-12-17 08:00 | NUR ---
ICU/RN AM SHIFT INITIAL NOTES RECEIVED PT ASLEEP, AROUSEABLE, OPEN EYES, RESPONDING TO TOUCH, EYES TRACTS. ON ETT 8.0 SIZE VENTILATOR SUPPORT WITH ET TUBE POSITION AT LIP 26, RATES SET PRESCRIBED, SATURATING @ 100%, SUCTIONED FOR AIRWAY CLEARANCE, LUNG SOUNDS DIMINISHED. ON TELE WITH SINUS TACHY, HR 105. SKIN & EYES JAUNDICED, WITH ON GOING INFUSION OF NS @ 150CC/HR, PICC LINE PATENT WITH NO S/S OF INFECTION. OG TUBE INTACT, FEEDING HELD D/T GASTRIC RESIDUAL. DELATORRE CATHETER INTACT NOTED WITH CLEAR YELLOW ORANGE URINE OUTPUT. BILATERAL WRISTS RESTRAINTS IN [place], RELEASED TO CHECK FOR CIRCULATION AN COMFORT THEN PLACED BACK. PT IS COMFORTABLE, SCHEDULED AM MEDS TO BE GIVEN. CL WITHIN REACHED AND SAFETY MAINTAINED. ON GOING MONITORING.
[2017-12-17 08:02] LABS: ALBUMIN 2.2 g/dL (3.4-5.0); BILIRUBIN,DIRECT 6.5 mg/dL (0.0-0.2); BILIRUBIN,TOTAL 7.7 mg/dL (0.2-1.0); TOTAL PROTEIN, SERUM 5.7 g/dL (6.4-8.2)
[2017-12-17] MEDS: LACTULOSE 10 G/15 ML UDC (PYXIS) PO SCH ×2 (08:51→17:05)
[2017-12-17] MEDS: RIFAXIMIN 550 MG TABLET PO SCH ×2 (08:51→17:06)
[2017-12-17] MEDS: POTASSIUM CL. PREMIX PERIPHER. 50 ML IV SCH ×6 (08:52→17:05)
[2017-12-17 09:02] LABS: ABG BASE EXCESS -4.7 mmol/L; ABG OXYGEN SATURATION 96.5 % (92.0-98.5); ABG PCO2 29.7 mmHg (35.0-45.0); ABG PH 7.417 (7.350-7.450); ABG PO2 91.6 mmHg (75.0-100.0); AaDO2 123.4 mmHg; COHb 0.3 % (0.5-1.5); MetHb 0.2 % (0.0-1.5); PEEP,BG 0 cm H2O; SITE, ABG Left Brachial; VT, ABG 450 mL
[2017-12-17] MEDS: Magnesium 1GM/D5W 100ML PREMIX 100 ML IV SCH ×2 (11:20→12:40)
[2017-12-17] MEDS: ACETAMINOPHEN 325 MG TABLET PO PRN (11:42)
--- NOTE | 2017-12-17 19:26 | NUR ---
ICU/RN AM SHIFT END NOTES PT MORE RESPONSIVE TO FAMILY MEMBERS, NODS TO ACKNOWLEDGE OR MAKING EYE CONTACT. GASTRIC RESIDUAL STILL WITH LARGE AMOUNTS, NO FEEDING DURING THE SHIFT. ALL NEEDS MET. PT ENDORSED TO PM NURSE TO CONTINUE CARE. CL WITHIN REACHED AND SAFETY MAINTAINED.
[2017-12-17] MEDS: ENOXAPARIN SODIUM 40 MG/0.4 ML DISP.SYRIN SQ SCH (20:43)
[2017-12-18] VITALS (33 sets, daily range): BP systolic 114–146; BP diastolic 67–89
[2017-12-18] MEDS: IV NS 0.9% 1,000 ML IV PRN ×2 (00:37→07:14)
[2017-12-18] MEDS: LACTULOSE 10 G/15 ML UDC (PYXIS) PO SCH ×4 (00:38→23:21)
[2017-12-18] MEDS: ACETAMINOPHEN 325 MG TABLET PO PRN ×2 (00:38→10:33)
[2017-12-18 04:43] LABS: CALCIUM, SERUM 7.7 mg/dL (8.5-10.1); MAGNESIUM 2.2 mg/dL (1.8-2.4)
[2017-12-18 04:58] LABS: ALBUMIN 2.1 g/dL (3.4-5.0); BILIRUBIN,DIRECT 6.7 mg/dL (0.0-0.2); BILIRUBIN,TOTAL 8.1 mg/dL (0.2-1.0); TOTAL PROTEIN, SERUM 5.6 g/dL (6.4-8.2)
[2017-12-18 05:21] LABS: POTASSIUM 2.7 mmol/L (3.5-5.1)
[2017-12-18 05:23] LABS: PHOSPHORUS 0.9 mg/dL (2.5-4.9)
--- NOTE | 2017-12-18 07:37 | NUR ---
VENT EDD GERBER FOR WEANING TRIAL PER ORDER: CPAP 5 PS 10 FIO2 35% Addendum: 12/18/17 at 0742 by PITO WOLFE RT Amended: Links added.
[2017-12-18] MEDS ORDERED: POTASSIUM PHOSPHATE MM 15 MMOL in IV D5W 250 ML IV ONE ×2 (08:00→12:00)
--- NOTE | 2017-12-18 08:00 | NUR ---
Initial Recieved report from mold shifter RN Natalie. pt on restraints pt intubated rtried to pull tube out. pt off sedation and no other drips but NS @ 100ml making urine mikayla color pt placed on CPAP by RT at 0730 ABG done at 0835 Peleg evaluating pt ABG results report to no change in ventilator settings of CPAP +5 ps 10 35% Family mother visiting pt. Called pharmcy for Phos 7.5Mmol and K+ lazaro 10mEQ.
[2017-12-18 08:58] LABS: ABG BASE EXCESS -1.8 mmol/L; ABG OXYGEN SATURATION 94.6 % (92.0-98.5); ABG PCO2 32.6 mmHg (35.0-45.0); ABG PO2 76.2 mmHg (75.0-100.0); AaDO2 135.5 mmHg; COHb 0.3 % (0.5-1.5); MetHb 1.1 % (0.0-1.5); O2Hb 93.3 % (94.0-97.0); SITE, ABG Left Brachial
[2017-12-18] MEDS: RIFAXIMIN 550 MG TABLET PO SCH ×2 (09:32→17:55)
[2017-12-18] MEDS: POTASSIUM CL. PREMIX PERIPHER. 50 ML IV SCH ×5 (10:22→14:30)
--- NOTE | 2017-12-18 10:40 | NUR ---
PT SUCTIONED FOR THIN PINK SECRETIONS INCREASED FIO2 FOR SATURATION OF 888% TO 40% RECTAL TEMPERATURE 100.0 GIVEN 650 TYLENOL CLOSED SHADES ON WINDOW AND STARTED FAN TO CIRCULATE AIR.
[2017-12-18] MEDS ORDERED: [UNRECOGNIZED DRUG - OTHER] NG PRN (11:00)
--- NOTE | 2017-12-18 11:11 | NUR ---
PT IS AWAKE AND FOLLOW COMMANDS, PLACED INTO COOL AEROSOL @ 40% ORDER. SPO2 95% HR 106 Addendum: 12/18/17 at 1113 by PITO WOLFE RT Amended: Links added.
[2017-12-18] MEDS: POTASSIUM PHOSPHATE MM 7.5 MMOL in IV D5W 100 ML IV SCH ×4 (12:13→17:52)
[2017-12-18] MEDS: Potassium Chloride 40 MEQ in IV NS 0.9% 1,000 ML IV PRN ×2 (12:15→23:05)
--- NOTE | 2017-12-18 12:40 | NUR ---
BRADLEY received a voicemail message from pt's mother Hailey requesting a verification of admission letter for her since she is trying to pay patient's bills. BRADLEY typed up verification of admission letter and gave it to pt' mother who was visiting bedside.
--- NOTE | 2017-12-18 19:17 | NUR ---
PT RCVD ON COOL AEROSOL 40%. PT IS ALERT AND AWAKE. NO RESPIRATORY DISTRESS NOTED AT THIS TIME.
--- NOTE | 2017-12-18 19:19 | NUR ---
CLOSING NOTE REPORT GIVEN TO CHUY DBA DEVELOPER RN. PT VSS AXO X2 POTASSIUM PHOSPHORUS #4 LEFT RUNNING. PT HAD 1 LOSSE BROWN STOOL. PT REMAINS ON T-PIECE NO RESPIRATORY DISTRESS NOTED.
--- NOTE | 2017-12-18 20:00 | NUR ---
Received pt on restraints, intubated, off sedation, IVF NS @ 100ml making urine mikayla color pt on CPAP COOL AEROSOL 40%. PT IS AWAKE ALERT, ABLE TO MOVE EXTREMITIES, NO PAIN, VITAL SIGNS STABLE, WILL CONTINUE TO MONITOR
[2017-12-18] MEDS: ENOXAPARIN SODIUM 40 MG/0.4 ML DISP.SYRIN SQ SCH (20:42)
[2017-12-19] VITALS (25 sets, daily range): BP systolic 106–149; BP diastolic 63–108
--- NOTE | 2017-12-19 03:30 | NUR ---
PT PULLED OUT ETT AND OGT, WHILE ON RESTRAINTS, PT IS AWAKE ALERT, VOICE IS HOARSE, PT PLACED ON 15L NRB, 02SAT >96%
--- NOTE | 2017-12-19 03:30 | NUR ---
PT SELF EXTUBATED, CHARITY STEELE NOTIFIED. PLACED ON NON REBREATHER 15L , PT TOLERATED THE NRB WITH THE SPO2 OF 98%, RESPIRATORY DISTRESS NOTED AT THIS TIME. Addendum: 12/19/17 at 0404 by ELANA MATHEWS RT NO STRIDOR NOTED AT THIS TIME, BS COARSE CRACKLES NOTED
--- NOTE | 2017-12-19 06:39 | NUR ---
PT LOWERED TO 12L SIMPLE MASK O2SAT 98%
[2017-12-19] MEDS: Potassium Chloride 40 MEQ in IV NS 0.9% 1,000 ML IV PRN ×3 (07:11→23:27)
--- NOTE | 2017-12-19 07:30 | NUR ---
initial PT SELF EXTUBATED AT 0330 THIS AM CURRENTLY ON SIMPLE MASK AT 7 LPM SATURATION 95% UPON EVALUATION PT WITH EXSPIRATORY WHEEZING RT CALLED RESPIRATORY OREDERS PLACED PT ALERT AND ORIENTED X 4 PT SPEAKING WITH SOFT VOICE C/O SORE THROAT . PT MOVES ALL EXTREMITIES LAB TO DRAWM AM LABS NOW. PT ON IV FLUIDS NS WITH 40 Meq K+ @ 125ML HOUR. REPROT TAKEN FROM CHARITY CARRANZA
[2017-12-19] MEDS: ALBUTEROL FS 2.5 MG/0.5 ML VIAL.NEB NEB PRN ×3 (07:42→16:02)
[2017-12-19] MEDS: IPRATROPIUM NEB FS 0.5 MG/2.5 ML AMPUL.NEB NEB PRN ×3 (07:43→16:02)
[2017-12-19] MEDS: LACTULOSE 10 G/15 ML UDC (PYXIS) PO SCH (08:00)
[2017-12-19 08:04] LABS: BASOPHILS % (AUTO) 0.3 % (0.0-2.0); EOSINOPHILS # (AUTO) 0.1 /CMM (0.0-0.7); EOSINOPHILS % (AUTO) 0.9 % (0.0-6.0); HEMATOCRIT 29 % (39-51); HEMOGLOBIN 9.9 g/dL (13.5-17.5); LYMPHOCYTES # (AUTO) 0.6 /CMM (0.8-4.8); LYMPHOCYTES % (AUTO) 6.1 % (20.0-44.0); MEAN CORPUSCULAR HEMOGLOBIN 34 PG (26.0-33.0); MEAN CORPUSCULAR HGB CONC 35 g/dl (31.0-36.0); MEAN CORPUSCULAR VOLUME 99 fL (80-96); MONOCYTES # (AUTO) 1.1 /CMM (0.1-1.30); MONOCYTES % (AUTO) 11.5 % (2.0-12.0); NEUTROPHILS # (AUTO) 8.1 /CMM (1.8-8.9); NEUTROPHILS % (AUTO) 81.2 % (43.0-81.0); PLATELET COUNT (AUTO) 128 /CMM (150-450); RDW COEFFICIENT OF VARIATION 14.4 (11.5-15.0)
[2017-12-19] MEDS: ACETAMINOPHEN 325 MG TABLET PO PRN ×2 (08:05→18:42)
[2017-12-19 09:00] LABS: ABG BASE EXCESS -0.4 mmol/L; ABG OXYGEN SATURATION 94.5 % (92.0-98.5); ABG PCO2 31.2 mmHg (35.0-45.0); ABG PH 7.473 (7.350-7.450); ABG PO2 69.6 mmHg (75.0-100.0); AaDO2 208.6 mmHg; COHb 0.3 % (0.5-1.5); MetHb 0.6 % (0.0-1.5); O2Hb 93.6 % (94.0-97.0); SITE, ABG Right Radial; VENT MODE, BG NASAL CANNULA
[2017-12-19] MEDS: RIFAXIMIN 550 MG TABLET PO SCH ×2 (09:23→17:01)
--- NOTE | 2017-12-19 09:26 | NUR ---
WOUND CARE CONSULT: PT PRESENTS WITH INCONTINENCE OF STOOL. CURRENT JOVANNA SCORE IS 12. PT NOW EXTUBATED. ALL SKIN PROTECTION MEASURES IN PLACE AND DISCUSSED WITH NURSING STAFF. WILL SEE PRMary MOROCHO IN AGREEMENT WITH PLAN OF CARE.
[2017-12-19 09:45] LABS: CREATININE 0.7 mg/dL (0.6-1.3); POTASSIUM 3.5 mmol/L (3.5-5.1)
[2017-12-19 09:49] LABS: MAGNESIUM 1.8 mg/dL (1.8-2.4); PHOSPHORUS 1.2 mg/dL (2.5-4.9)
[2017-12-19 12:11] LABS: *SPE ALBUMIN 2.5 g/dL (2.9-4.4); *SPE ALPHA-1-GLOBULIN 0.2 g/dL (0.0-0.4); *SPE ALPHA-2-GLOBULIN 0.5 g/dL (0.4-1.0); *SPE GLOBULIN, TOTAL 2.6 g/dL (2.2-3.9); *SPE M-SPIKE Not Observed g/dL (Not Observed); *SPEGAMMA GLOBULIN 0.9 g/dL (0.4-1.8)
[2017-12-19] MEDS ORDERED: NEUTRA PHOS 1 POWD.PACKET PO ONE ×2 (13:00→16:00)
--- NOTE | 2017-12-19 15:38 | NUR ---
ASSESSMENT PT TOLERATING EXTUBATION WELL ON 3 LPM NC NO STRIDOR NOTED. PT EVALUATED BY md Quiroz AND JACQUELINE PT DOWN GRADED TO TELE WHEN BED AVAILABLE 2 BM TODAY ATE CLEAR DIET NO NAUSEA OR VOMITING
[2017-12-19] MEDS ORDERED: IPRATROPIUM NEB FS 0.5 MG/2.5 ML AMPUL.NEB NEB PRN (19:00)
--- NOTE | 2017-12-19 19:05 | NUR ---
CLOSING REPORT GIVEN TO TERE ASSISTANT DIRECTOR RN PT HAD TWO MEDIUM BOWEL MOVMENTS TODAY TEMPERATURE AT CLOSE OF SHIFT GIVEN TYLENOL. PHOS TAB GIVEN PHOSPHOROUS 1.2 PT SUCCESSFULLY EXTUBATED WEANED TO 3 LPM NC NO STRIDOR OR WHEEZING COUGHS SPONTANEOUSLY. ATE 100% OF CLEAR LIQUID DIET PT HAS ORDERS TO ADVANCE DIET. PT HAS ORDERS TO TRANSFER TO [facility] WHEN BED AVAILABLE
[2017-12-19] MEDS: ENOXAPARIN SODIUM 40 MG/0.4 ML DISP.SYRIN SQ SCH (20:06)
[2017-12-19] MEDS: IPRATROPIUM NEB FS 0.5 MG/2.5 ML AMPUL.NEB NEB SCH (20:26)
[2017-12-19] MEDS: ALBUTEROL FS 2.5 MG/0.5 ML VIAL.NEB NEB SCH (20:26)
--- NOTE | 2017-12-19 21:10 | NUR ---
BOLT MAKER OPENING NOTES: RECEIVED PT AND IS A/OX3. PT ON 3LPM VIA COOL AEROSOL AND TOLERATING WELL. BED IN SEMI CONWAY'S POSITION. NOTED DELATORRE CATH AND IS ATTACHED TO DRAINAGE BAG WITH DARK URINE FLOWING. CALL LIGHT WITHIN PT'S REACH. BED KEPT IN LOW, LOCKED POSITION, AND SIDE RAILS X 3 UP. NO S/S OF DISTRESS NOTED AT THIS TIME. PT HAS MECHE PICC LINE BEING INFUSED WITH POTASSIUM CL 40MEQ IN IV NS AT 125ML/HR. CALL LIGHT WITHIN PT'S REACH. ENDORSED TO AM NURSE FOR ASHLEE.
--- NOTE | 2017-12-19 21:25 | NUR ---
PT TRANSFERRED TO [facility]-2 VIA ACLS PROTOCOL, WITH WASHERY BOSS RENEE, NO ACUTE DISTRESS, PT STABLE
[2017-12-20] VITALS (7 sets, daily range): BP systolic 114–134; BP diastolic 71–92
[2017-12-20] MEDS: IPRATROPIUM NEB FS 0.5 MG/2.5 ML AMPUL.NEB NEB SCH ×4 (01:03→19:39)
[2017-12-20] MEDS: ALBUTEROL FS 2.5 MG/0.5 ML VIAL.NEB NEB SCH ×4 (01:03→19:39)
--- NOTE | 2017-12-20 07:15 | NUR ---
RN NOTES RECEIVED PATIENT AWAKE ALERT AND VERBALLY RESPONSIVE, ABLE TO MAKE NEEDS KNOWN. RESPIRATIONS EVEN AND UNLABORED, IN NO APPARENT PAIN OR DISCOMFORT AT THIS TIME. MECHE PICC LINE PATENT AND INTACT NO REDNESS OR INFILTRATION NOTED. DELATORRE CATHETER DRAINING, PATENT AND INTACT. SAFETY MEASURES IN PLACE, CALL LIGHT WITHIN EASY REACH WILL CONTINUE TO MONITOR
[2017-12-20 07:26] LABS: BASOPHILS % (AUTO) 0.2 % (0.0-2.0); EOSINOPHILS # (AUTO) 0.1 /CMM (0.0-0.7); EOSINOPHILS % (AUTO) 0.5 % (0.0-6.0); HEMATOCRIT 35 % (39-51); HEMOGLOBIN 12.3 g/dL (13.5-17.5); LYMPHOCYTES # (AUTO) 0.9 /CMM (0.8-4.8); LYMPHOCYTES % (AUTO) 7.7 % (20.0-44.0); MEAN CORPUSCULAR HEMOGLOBIN 35 PG (26.0-33.0); MEAN CORPUSCULAR HGB CONC 35 g/dl (31.0-36.0); MEAN CORPUSCULAR VOLUME 98 fL (80-96); MONOCYTES # (AUTO) 0.7 /CMM (0.1-1.30); MONOCYTES % (AUTO) 6.4 % (2.0-12.0); NEUTROPHILS # (AUTO) 9.6 /CMM (1.8-8.9); NEUTROPHILS % (AUTO) 85.2 % (43.0-81.0); PLATELET COUNT (AUTO) 180 /CMM (150-450); RDW COEFFICIENT OF VARIATION 14.3 (11.5-15.0); RED BLOOD CELL COUNT(AUTO) 3.55 MIL/uL (4.5-6.0); WHITE BLOOD COUNT (AUTO) 11.2 K/uL (4.3-11.0)
--- NOTE | 2017-12-20 07:35 | NUR ---
SYSTEM SAFETY ENGINEER CLOSING NOTES: ALL NEEDS WERE ATTENDED AND ANTICIPATED FOR. PT IS AWAKE AND IS IN SEMI-CONWAY'S POSITION WATCHING TELEVISION. PT AWAITING FOR BREAKFAST TO ARRIVE. PT IS A/OX3. PT ON 3LPM VIA COOL AEROSOL AND TOLERATING WELL. NOTED DELATORRE CATH AND IS ATTACHED TO DRAINAGE BAG WITH URINE FLOWING. OUTPUT WAS 1,000ML. CALL LIGHT WITHIN PT'S REACH. BED KEPT IN LOW, LOCKED POSITION, AND SIDE RAILS X 3 UP. NO S/S OF DISTRESS NOTED AT THIS TIME. PT HAS MECHE PICC LINE BEING INFUSED WITH POTASSIUM CL 40MEQ IN IV NS AT 125ML/HR. CALL LIGHT WITHIN PT'S REACH. ENDORSED TO AM NURSE FOR ASHLEE. Addendum: 12/20/17 at 0737 by JYOTI VALDES RN TELE READING SHOWS SR 90S - ST LOW 100S.
[2017-12-20 07:43] LABS: CALCIUM, SERUM 7.9 mg/dL (8.5-10.1); CREATININE 0.6 mg/dL (0.6-1.3); POTASSIUM 3.6 mmol/L (3.5-5.1)
[2017-12-20] MEDS: RIFAXIMIN 550 MG TABLET PO SCH ×2 (08:24→16:23)
[2017-12-20] MEDS: ONDANSETRON HCL/PF 4 MG/2 ML VIAL IVP PRN ×2 (08:24→11:39)
[2017-12-20] MEDS ORDERED: Sodium Phosphate 15 MMOL in IV D5W 250 ML IV ONE ×4 (10:00)
[2017-12-20] MEDS: ACETAMINOPHEN 325 MG TABLET PO PRN (11:46)
[2017-12-20] MEDS: Potassium Chloride 40 MEQ in IV NS 0.9% 1,000 ML IV PRN ×2 (12:36→21:29)
[2017-12-20] MEDS: Potassium Phosphate meq 11 MEQ in IV D5W 100 ML IV SCH ×2 (12:37→16:23)
[2017-12-20 13:51] LABS: BILIRUBIN,DIRECT 6.1 mg/dL (0.0-0.2); BILIRUBIN,TOTAL 7.8 mg/dL (0.2-1.0); TOTAL PROTEIN, SERUM 5.8 g/dL (6.4-8.2)
[2017-12-20] MEDS: PANTOPRAZOLE 40 MG TABLET.DR PO SCH (16:23)
--- NOTE | 2017-12-20 19:30 | NUR ---
RN NOTES PATIENT ASLEEP COMFORTABLY IN BED EASILY AROUSABLE DURING CARE, VERBALLY RESPONSIVE, ABLE TO MAKE NEEDS KNOWN. RESPIRATIONS EVEN AND UNLABORED, IN NO APPARENT PAIN OR DISCOMFORT AT THIS TIME. MECHE PICC LINE PATENT AND INTACT NO REDNESS OR INFILTRATION NOTED. DELATORRE CATHETER DRAINING, PATENT AND INTACT. SAFETY MEASURES IN PLACE, CALL LIGHT WITHIN EASY REACH ENDORSED TO NEXT SHIFT FOR CONTINUITY OF CARE
--- NOTE | 2017-12-20 19:40 | NUR ---
RN NOTES RECEIVED PATIENT IN BED WITH EYES CLOSED, AROUSABLE. AO X 3, ABLE TO MAKE NEEDS KNOWN. NO ACUTE DISTRESS NOTED. DENIES ANY PAIN AT THIS TIME. IV SITE PATENT, INTACT; IVF INFUSING ORDERED. DELATORRE CATH PATENT, INTACT; DRAINING CLEAR YELLOW URINE. SAFETY REMINDERS GIVEN. ON LOW BED WITH BILATERAL UPPER SIDE RAILS UP. CALL FOSS WITHIN EASY REACH. WILL CONTINUE TO MONITOR.
[2017-12-20] MEDS: ENOXAPARIN SODIUM 40 MG/0.4 ML DISP.SYRIN SQ SCH (21:28)
[2017-12-21] MEDS: IPRATROPIUM NEB FS 0.5 MG/2.5 ML AMPUL.NEB NEB SCH ×4 (00:47→21:38)
[2017-12-21] MEDS: ALBUTEROL FS 2.5 MG/0.5 ML VIAL.NEB NEB SCH ×4 (00:47→21:38)
[2017-12-21] MEDS: Potassium Chloride 40 MEQ in IV NS 0.9% 1,000 ML IV PRN ×2 (05:49→15:47)
--- NOTE | 2017-12-21 06:00 | NUR ---
RN NOTES PATIENT ASLEEP, EASILY AROUSABLE. RESPIRATIONS EVEN. NO SIGNS OF PAIN NOTED. DUE MEDS GIVEN WITH NO ASE NOTED. NEEDS ATTENDED. SAFETY PRECAUTIONS AND COMFORT MEASURES IN PLACE. WILL GIVE REPORT TO DAY SHIFT FOR CONTINUITY OF CARE.
[2017-12-21 07:10] LABS: HEMATOCRIT 33 % (39-51); HEMOGLOBIN 11.5 g/dL (13.5-17.5); MEAN CORPUSCULAR HEMOGLOBIN 35 PG (26.0-33.0); MEAN CORPUSCULAR HGB CONC 35 g/dl (31.0-36.0); MEAN CORPUSCULAR VOLUME 98 fL (80-96); PLATELET COUNT (AUTO) 182 /CMM (150-450); RDW COEFFICIENT OF VARIATION 14.8 (11.5-15.0); RED BLOOD CELL COUNT(AUTO) 3.32 MIL/uL (4.5-6.0); WHITE BLOOD COUNT (AUTO) 12.6 K/uL (4.3-11.0)
--- NOTE | 2017-12-21 07:39 | NUR ---
RN OPENING NOTES RECEIVED PATIENT IN BED RESTING. HOB ELEVATED, ON 2LPM O2 VIA NC. NO ACUTE DISTRESS, NO SOB NOTED. DENIES PAIN OR DISCOMFORT. MECHE PICC LINE INTACT AND PATENT. DELATORRE IN PLACE DRAINING CLEAR YELLOW URINE. KEPT PATIENT SAFE AND COMFORTABLE IN BED. BED IN LOCKED, LOW POSITION, SIDERAILS UPX2, CALL LIGHT IN REACH. WILL CONTINUE TO MONITOR ACCORDINGLY.
[2017-12-21 07:44] LABS: ALBUMIN 1.9 g/dL (3.4-5.0); BILIRUBIN,DIRECT 6.1 mg/dL (0.0-0.2); BILIRUBIN,TOTAL 7.4 mg/dL (0.2-1.0); CALCIUM, SERUM 7.7 mg/dL (8.5-10.1); CREATININE 0.7 mg/dL (0.6-1.3); POTASSIUM 3.9 mmol/L (3.5-5.1); TOTAL PROTEIN, SERUM 5.6 g/dL (6.4-8.2)
[2017-12-21 07:58] LABS: BAND % (MANUAL) 5 % (0.0-5.0); EOSINOPHILS % (MANUAL) 2 % (0-4); LYMPHOCYTES % (MANUAL) 3 % (16-48); MONOCYTES % (MANUAL) 5 % (0-11.0); NEUTROPHILS % (MANUAL) 85 (42-76)
[2017-12-21 08:00] VITALS: BP 124/82
[2017-12-21] MEDS: RIFAXIMIN 550 MG TABLET PO SCH ×2 (08:34→16:24)
[2017-12-21] MEDS: GABAPENTIN 300 MG CAPSULE PO SCH ×3 (08:34→16:25)
[2017-12-21] MEDS: DOCUSATE SODIUM 100 MG CAPSULE PO SCH ×2 (08:34→16:25)
[2017-12-21] MEDS: PANTOPRAZOLE 40 MG TABLET.DR PO SCH (08:34)
[2017-12-21 16:00] VITALS: BP 99/63
[2017-12-21] MEDS ORDERED: NEUTRA PHOS 1 POWD.PACKET PO ONE (16:00)
[2017-12-21] MEDS ORDERED: Sodium Phosphate 15 MMOL in IV D5W 250 ML IV ONE (16:00)
--- NOTE | 2017-12-21 16:19 | NUR ---
RN NOTES PATIENT TEMP 101.0, NOTIFIED MENDOZA COBB. COOLING MEASURES DONE.
--- NOTE | 2017-12-21 16:40 | NUR ---
RN NOTES RECHECKED TEMP = 99.2 NOTIFIED MENDOZA COBB, PAYROLL AND BENEFITS MANAGER WILL MONITOR ACCORDINGLY
--- NOTE | 2017-12-21 19:27 | NUR ---
RN CLOSING NOTES PATIENT IN BED RESTING. NO ACUTE DISTRESS, NO SOB. DENIES PAIN OR DISCOMFORT. NO SIGNIFICANT CHANGES IN PATIENT'S CONDITION. ALL NEEDS ATTENDED AND PROVIDED. KEPT PATIENT SAFE AND COMFORTABLE. BED IN LOW, LOCKED POSITION, SIDERAILS UPX2, SEMIFOWLER'S, CALL LIGHT IN REACH. ENDORSED TO NIGHT RN FOR ASHLEE.
--- NOTE | 2017-12-21 19:30 | NUR ---
RN NOTES RECEIVED PATIENT IN BED WITH EYES CLOSED, AROUSABLE. AO X 3, ABLE TO MAKE NEEDS KNOWN. NO ACUTE DISTRESS NOTED. DENIES ANY PAIN AT THIS TIME. MECHE PICC LINE PATENT, INTACT; IVF INFUSING ORDERED. DELATORRE CATH PATENT, INTACT; DRAINING CLEAR RITA URINE. SAFETY REMINDERS GIVEN. ON LOW BED WITH BILATERAL UPPER SIDE RAILS UP. CALL FOSS WITHIN EASY REACH. WILL CONTINUE TO MONITOR.
[2017-12-21 20:00] VITALS: BP 127/78
[2017-12-21] MEDS: ENOXAPARIN SODIUM 40 MG/0.4 ML DISP.SYRIN SQ SCH (20:53)
--- NOTE | 2017-12-21 23:00 | NUR ---
RN NOTES PER PHONE ORDER FROM DR. MENDEZ, KEEP PATIENT NPO STARTING MIDNIGHT FOR POSSIBLE EGD ON 12/22/17; NOTED AND JASMYNE OUT. PATIENT MADE AWARE.
[2017-12-22] MEDS: ALBUTEROL FS 2.5 MG/0.5 ML VIAL.NEB NEB SCH ×4 (02:05→20:10)
[2017-12-22] MEDS: IPRATROPIUM NEB FS 0.5 MG/2.5 ML AMPUL.NEB NEB SCH ×4 (02:05→20:10)
[2017-12-22] MEDS: Potassium Chloride 40 MEQ in IV NS 0.9% 1,000 ML IV PRN ×2 (04:07→14:52)
--- NOTE | 2017-12-22 06:00 | NUR ---
RN NOTES PATIENT REFUSED TO BE CLEANED. MADE COMFORTABLE.
--- NOTE | 2017-12-22 06:10 | NUR ---
RN NOTES PATIENT ASLEEP, EASILY AROUSABLE. RESPIRATIONS EVEN. NO SIGNS OF PAIN NOTED. DUE MEDS GIVEN WITH NO ASE NOTED. KEPT NPO. NEEDS ATTENDED. SAFETY PRECAUTIONS AND COMFORT MEASURES IN PLACE. WILL GIVE REPORT TO DAY SHIFT FOR CONTINUITY OF CARE.
--- NOTE | 2017-12-22 06:38 | NUR ---
[facility] DR[facility].
[2017-12-22] MEDS: PANTOPRAZOLE 40 MG TABLET.DR PO SCH (07:30)
[2017-12-22 08:00] VITALS: BP_SYST 131; BP_DIAS 80; BP_DIAS 86
--- NOTE | 2017-12-22 08:00 | NUR ---
m/s smasher: notes left message to linda (manager inpatient) re: possible egd, but no schedule per o.r. checked with dr. jim, spoke to him over the phone and wants me to call linda.
--- NOTE | 2017-12-22 08:20 | NUR ---
m/s ethics manager: notes marcus (tech) notified and informed pt pt is schedule for mrcp without contrast and no need for consent as stated, pt remains npo since midnight. will continue to monitor.
[2017-12-22] MEDS: RIFAXIMIN 550 MG TABLET PO SCH ×2 (08:24→17:28)
[2017-12-22] MEDS: GABAPENTIN 300 MG CAPSULE PO SCH ×3 (08:24→17:28)
[2017-12-22] MEDS: DOCUSATE SODIUM 100 MG CAPSULE PO SCH ×2 (08:24→17:28)
--- NOTE | 2017-12-22 08:25 | NUR ---
m/s chiropractic physician: notes held am meds due to mrcp schedule today and for possible egd. pt aware. mother at bedside and aware.
--- NOTE | 2017-12-22 10:25 | NUR ---
m/s head of ethics and compliance: neuro f/u seen and examined by dr. manzo at this time. linda (field hockey coach, gi) called back and informed me that pt can eat after mrcp and no egd schedule at this time, and put him on colace and miralax daily if he doesn't have any order. orders read back and carried out and acknowledged.
[2017-12-22] MEDS ORDERED: POLYETHYLENE GLYCOL 3350 17 GM POWD.PACK PO PRN (10:30)
--- NOTE | 2017-12-22 10:45 | NUR ---
m/s attendant coin operated laundry: notes picked up for mrcp via w/c at this time. will continue to monitor.
--- NOTE | 2017-12-22 11:30 | NUR ---
m/s meat cutting block repairer: notes pt back from mrcp. ilda (acnp) at bedside with pt and mother at this time.
[2017-12-22 12:04] LABS: HEMATOCRIT 34 % (39-51); HEMOGLOBIN 11.7 g/dL (13.5-17.5); MEAN CORPUSCULAR HEMOGLOBIN 34 PG (26.0-33.0); MEAN CORPUSCULAR HGB CONC 35 g/dl (31.0-36.0); MEAN CORPUSCULAR VOLUME 98 fL (80-96); PLATELET COUNT (AUTO) 203 /CMM (150-450); RED BLOOD CELL COUNT(AUTO) 3.42 MIL/uL (4.5-6.0); WHITE BLOOD COUNT (AUTO) 12.5 K/uL (4.3-11.0)
[2017-12-22 12:16] LABS: CREATININE 0.7 mg/dL (0.6-1.3); POTASSIUM 4.3 mmol/L (3.5-5.1)
[2017-12-22 12:28] LABS: BAND % (MANUAL) 5 % (0.0-5.0); LYMPHOCYTES % (MANUAL) 4 % (16-48); MONOCYTES % (MANUAL) 3 % (0-11.0); NEUTROPHILS % (MANUAL) 86 (42-76); REACTIVE LYMPHOCYTES 2 % (0-0)
--- NOTE | 2017-12-22 14:00 | NUR ---
m/s seal skinner: gi f/u seen and examined by linda (kamilah) with orders. linda explained to pt and mother re: egd procedure for tomorrow and verbalized understanding. pt aware that he is not going to eat or drink after midnight tonight. pt signed all consents including procedure, anesthesia, and blood products/transfusion. instructed to call for assistance. will continue to monitor.
--- NOTE | 2017-12-22 15:00 | NUR ---
m/s certified court/medical interpreter: notes pt c/o sorethroat and ask if we can remove his f/c. ilda (acnp) notified and made aware with new orders. orders read back and carried out and acknowledged. pt made aware. f/c removed as ordered, marija. well. instructed to call for assistance. will continue to monitor.
[2017-12-22] MEDS: HYDROCODONE/APAP 10/325MG 1 EA TABLET PO PRN (15:47)
--- NOTE | 2017-12-22 15:47 | NUR ---
m/s outsoles channel opener: notes c/o 8/10 lower abdominal pain, medicated with norco 10/325mg po as ordered. mother remains at bedside. instructed to call for assistance. will continue to monitor.
[2017-12-22 16:00] VITALS: BP 109/74
--- NOTE | 2017-12-22 16:30 | NUR ---
m/s liquid chlorine operator: notes picc line nurse here and removed right upper arm picc with tip intact. inserted midline to left upper arm, marija. well. iv fluids continue to run on new midline. instructed to call for assistance. will monitor.
[2017-12-22] MEDS ORDERED: IV NS 0.9% 1,000 ML IV PRN (17:00)
--- NOTE | 2017-12-22 17:44 | NUR ---
m/s oil well cable tool driller: notes pt voided using urinal with 450ml of clear mikayla urine. dinner served. hob elevated at 90 degree. instructed to call for assistance. will continue to monitor.
--- NOTE | 2017-12-22 19:30 | NUR ---
MS RN OPENING NOTES: PATIENT IN BED, AOX4, ON ROOM AIR, BREATHING EVEN AND UNLABORED. APPEARS CALM AND IN NO DISTRESS. DENIES PAIN AT THIS TIME. PATIENT HAS RASHMI MIDLINE INTACT AND PATENT, INFUSING WELL WITH IVF OF NS 1 L + 40 MEQS KCL RUNNING AT 125 ML/HR. PROVIDED FOR COMFORT AND SAFETY. BED IN LOWEST AND LOCKED POSITION, SIDERAILS UP X 3. CALL LIGHT WITHIN REACH. WILL CONT TO MONITOR.
[2017-12-22 20:00] VITALS: BP 127/82
[2017-12-22] MEDS: ENOXAPARIN SODIUM 40 MG/0.4 ML DISP.SYRIN SQ SCH (21:00)
--- NOTE | 2017-12-22 21:20 | NUR ---
RN NOTES: CALLED DR GOODWIN, LOVENOX DOSE FOR TONIGHT TO BE HELD FOR PROCEDURE IN AM (EGD.) DOSE HELD.
[2017-12-22] MEDS: METOCLOPRAMIDE HCL 10 MG/2 ML VIAL IV SCH (21:34)
[2017-12-22] MEDS: MENTHOL/CETYLPYRD (CEPACOL) 1 LOZ LOZENGE PO PRN ×2 (21:36→23:34)
[2017-12-23] MEDS: ALBUTEROL FS 2.5 MG/0.5 ML VIAL.NEB NEB SCH ×4 (02:04→20:12)
[2017-12-23] MEDS: IPRATROPIUM NEB FS 0.5 MG/2.5 ML AMPUL.NEB NEB SCH ×4 (02:04→20:12)
[2017-12-23] MEDS: METOCLOPRAMIDE HCL 10 MG/2 ML VIAL IV SCH ×3 (05:30→22:00)
[2017-12-23 06:48] LABS: CALCIUM, SERUM 8.2 mg/dL (8.5-10.1); CREATININE 0.7 mg/dL (0.6-1.3); MAGNESIUM 1.4 mg/dL (1.8-2.4); PHOSPHORUS 2.9 mg/dL (2.5-4.9); POTASSIUM 4.1 mmol/L (3.5-5.1)
--- NOTE | 2017-12-23 07:04 | NUR ---
MS RN CLOSING NOTES: PATIENT IN BED, AOX4, ON ROOM AIR, BREATHING EVEN AND UNLABORED. APPEARS CALM AND IN NO DISTRESS. DENIES PAIN OR NAUSEA AT THIS TIME. RASHMI MIDLINE INTACT AND INFUSING WELL WITH NS RUNNING AT 75 ML /HR. DUE MEDS GIVEN. PROVIDED FOR COMFORT AND SAFETY. MAINTAINED ON NPO AFTER MIDNIGHT FOR EGD LATER THIS AM. PROVIDED FOR COMFORT AND SAFETY. BED IN LOWEST AND LOCKED POSITION, SIDERAILS UP X 2, CALL LIGHT WITHIN REACH. WILL ENDORSE TO AM RN FOR ASHLEE.
[2017-12-23] MEDS: PANTOPRAZOLE 40 MG TABLET.DR PO SCH ×3 (07:30→21:58)
--- NOTE | 2017-12-23 07:30 | NUR ---
MSRN OPENING NOTE. PT RECEIVED A&0X3 AWAKE AND RESTING IN BED. PT NPO R/T PROCEDURE. PT TOLERATING ROOM AIR WITH SAO2 WNL AND SO S/S OF RESP DISTRESS. PT REPORTING ROMINA.UMBILICAL PAIN 8/10 0VER NIGHT. PT WITH L UA MIDLINE INTACT AND OPERATIONAL. BED IN LOWEST LOCKED POSITION WITH HANDRAILSX2 AND CALL FOSS WITHIN REACH. PT BRIEFED ON TODAY'S POC AND UPCOMING PROCEDURE, PT IS WITHOUT CONCERN OR COMPLAINT AT THIS TIME.
[2017-12-23 08:00] VITALS: BP 102/64
[2017-12-23 08:47] LABS: HEMATOCRIT 30 % (39-51); HEMOGLOBIN 10.6 g/dL (13.5-17.5); MEAN CORPUSCULAR HEMOGLOBIN 35 PG (26.0-33.0); MEAN CORPUSCULAR HGB CONC 35 g/dl (31.0-36.0); MEAN CORPUSCULAR VOLUME 99 fL (80-96); PLATELET COUNT (AUTO) 183 /CMM (150-450); RDW COEFFICIENT OF VARIATION 14.9 (11.5-15.0); RED BLOOD CELL COUNT(AUTO) 3.04 MIL/uL (4.5-6.0)
--- NOTE | 2017-12-23 08:47 | NUR ---
MSRN NOTES. PT REQUESTING ANALGESIA FOR 8/10 ROMINA-UMBICAL PAIN. MD PADILLA REQUESTING IV MORPHINE 2MG X1, ORDER PLACED.
[2017-12-23] MEDS: GABAPENTIN 300 MG CAPSULE PO SCH ×3 (09:00→17:05)
[2017-12-23] MEDS: DOCUSATE SODIUM 100 MG CAPSULE PO SCH ×2 (09:00→17:05)
[2017-12-23] MEDS: RIFAXIMIN 550 MG TABLET PO SCH ×2 (09:00→17:05)
[2017-12-23] MEDS ORDERED: MORPHINE SULFATE INJ 4 MG/ML DISP.SYRIN IV ONE (09:00)
[2017-12-23 09:09] LABS: BAND % (MANUAL) 4 % (0.0-5.0); EOSINOPHILS % (MANUAL) 2 % (0-4); LYMPHOCYTES % (MANUAL) 2 % (16-48); MONOCYTES % (MANUAL) 6 % (0-11.0); NEUTROPHILS % (MANUAL) 86 (42-76)
[2017-12-23] MEDS: Magnesium 1GM/D5W 100ML PREMIX 100 ML IV SCH ×4 (11:30→17:02)
[2017-12-23] MEDS: SUCRALFATE 1 G TABLET PO SCH ×3 (11:38→21:58)
[2017-12-23] MEDS ORDERED: LACTULOSE 10 G/15 ML UDC (PYXIS) PO ONE ×2 (12:30→13:30)
[2017-12-23 16:00] VITALS: BP 123/75
--- NOTE | 2017-12-23 18:05 | NUR ---
MSRN CLOSING. PT REMAINS A&0X3, TOLERATING ROOM AIR WITHOUT SOB AND SAO2 WNL. PT DENIES PAIN. PT WITH L UA MIDLINE INTACT AND OPERATIONAL. PT SEEN BY PT. PT WITH FAMILY AT BEDSIDE. PT BED IN LOWEST LOCKED POSITION WITH HANDRAILSX2 AND CALL FOSS WITHIN REACH, ALL DAY NURSE DUTIES ATTENDED TO, PT AND FAMILY WITHOUT CONCENR OR COMPLAINT AT THIS TIME. WILL ENDORSE TO NIGHT NURSE.
--- NOTE | 2017-12-23 19:30 | NUR ---
MS RN OPENING NOTES RECEIVED PATIENT RESTING IN BED, A & O X 3, ABLE TO MAKE NEEDS KNOWN. NO RESP DISTRESS, NO C/O PAIN, NO SOB NOTED, @ RA SATTING @ 96 %. HAS RASHMI KI, SL. AMBULATORY WITH WALKER. CONTINENT OF B & BM. SAFETY MEASURES IN PLACE. NO DISCOMFORT NOTED. BED IN LOW LOCKED POSITION. CALL LIGHT WITHIN REACH. WILL CONTINUE TO OBSERVE CLOSELY.
[2017-12-23 20:00] VITALS: BP 98/54
[2017-12-23 20:45] VITALS: BP 111/68
[2017-12-23] MEDS ORDERED: GUAIFENESIN/D-METHORPHAN HB 5 ML UDC PO PRN (21:30)
--- NOTE | 2017-12-23 21:30 | NUR ---
NEW ORDER RECEIVED PT C/O DRY COUGH, DR. GOODWIN WAS PAGED & MD CALLED BACK WITH NEW ORDER OF COUGH SYP. NOTED & CARRIED OUT. WILL FOLLOW THE ORDER.
[2017-12-23] MEDS ORDERED: GUAIFENESIN/D-METHORPHAN HB 5 ML UDC ONE (21:35)
[2017-12-23] MEDS: ENOXAPARIN SODIUM 40 MG/0.4 ML DISP.SYRIN SQ SCH (21:59)
--- NOTE | 2017-12-23 22:10 | NUR ---
PRN ROBITUSSIN GIVEN PATIENT HAD C/O DRY COUGH, PRN COUGH SYP GIVEN ORDERED BY DR. GOODWIN. WILL REASSESS FOR EFFECTIVENESS.
[2017-12-23] MEDS: HYDROCODONE/APAP 10/325MG 1 EA TABLET PO PRN (22:19)
--- NOTE | 2017-12-23 22:19 | NUR ---
PRN NORCO GIVEN PATIENT C/O ABDOMINAL PAIN 07/06 & WANTED TO TAKE NORCO, PRN NORCO GIVEN ORDERED. WILL REASSESS.
[2017-12-24] MEDS: ALBUTEROL FS 2.5 MG/0.5 ML VIAL.NEB NEB SCH ×4 (00:31→19:33)
[2017-12-24] MEDS: IPRATROPIUM NEB FS 0.5 MG/2.5 ML AMPUL.NEB NEB SCH ×4 (00:31→19:33)
[2017-12-24] MEDS: METOCLOPRAMIDE HCL 10 MG/2 ML VIAL IV SCH ×3 (05:35→21:27)
--- NOTE | 2017-12-24 06:55 | NUR ---
MS RN CLOSING NOTES PATIENT SLEPT WELL @ NIGHT, A & O X 3, ABLE TO MAKE NEEDS KNOWN. NO RESP DISTRESS, NO SOB NOTED, @ RA SATTING @ 95 %. HAS RASHMI MIDLINE, SL. INTACT PATENT. AMBULATORY WITH WALKER. ALL NEEDS MET. PT NOTED WITH INTERMITTENT DRY COUGH, PRN COUGH SYP GIVEN. HAD C/O ABD PAIN, PRN NORCO WAS GIVEN & WAS EFFECTIVE. CONTINENT OF B & BM. SAFETY MEASURES IN PLACE. BED IN LOW LOCKED POSITION. CALL LIGHT WITHIN REACH. WILL ENDORSE TO AM RN FOR CONTINUITY OF CARE.
--- NOTE | 2017-12-24 07:20 | NUR ---
MSRN OPENING NOTE. PT RECEIVED A&0X3 AWAKE AND RESTING IN BED WITH RT TX. PT TOLERATING ROOM AIR WITH SAO2 WNL. PT REPORTING ROMINA.UMBILICAL PAIN 5/10 WITH SOME 'THROAT' DISCOMFORT WITH SYMPTOMS CONSISTENT WITH DIAGNOSIS GORD. PT WITH L UA MIDLINE INTACT AND SALINE FLUSH PATENT. BED IN LOWEST LOCKED POSITION WITH HANDRAILSX2 AND CALL FOSS WITHIN REACH. PT BRIEFED ON TODAY'S POC AND IS WITHOUT CONCERN OR COMPLAINT AT THIS TIME.
[2017-12-24 08:00] VITALS: BP 101/69
[2017-12-24] MEDS: GABAPENTIN 300 MG CAPSULE PO SCH ×3 (08:07→16:32)
[2017-12-24] MEDS: DOCUSATE SODIUM 100 MG CAPSULE PO SCH ×2 (08:07→16:32)
[2017-12-24] MEDS: RIFAXIMIN 550 MG TABLET PO SCH ×2 (08:07→16:32)
[2017-12-24] MEDS: PANTOPRAZOLE 40 MG TABLET.DR PO SCH ×2 (08:07→21:27)
[2017-12-24] MEDS: SUCRALFATE 1 G TABLET PO SCH ×4 (08:07→21:27)
[2017-12-24] MEDS: HYDROCODONE/APAP 5/325MG 1 EACH TABLET PO PRN (08:09)
[2017-12-24] MEDS: MENTHOL/CETYLPYRD (CEPACOL) 1 LOZ LOZENGE PO PRN ×3 (09:20→19:37)
[2017-12-24 16:09] VITALS: BP 116/74
--- NOTE | 2017-12-24 17:40 | NUR ---
MSRN- INCENTIVE SPIROMETRY INITIATED PER PUMPER GAUGER APPRENTICE NO R/T: MINOR DYSPNEA WITH MINIMAL EXERTION. PT EDUCATED AND VERBALIZING UNDERSTANDING AND INTENT TO USE.
[2017-12-24 17:44] VITALS: BP 116/74
--- NOTE | 2017-12-24 17:54 | NUR ---
MSRN CLOSING NOTE. PT REMAINS A&0X3 WITH FAMILY AT BEDSIDE. PT TOLERATING ROOM AIR WITH SAO2 WNL BUT REPORTING SOME MINOR DYSPNEA WITH EXERTION, INCENTIVE SPIROMETRY INITIATED ASPER HAND PASTER NO. PT DENIES PAIN AT THIS TIME. PT WITH L UA MIDLINE INTACT AND SALINE FLUSH PATENT. BED IN LOWEST LOCKED POSITION WITH HANDRAILSX2 AND CALL FOSS WITHIN REACH. PT IS WITHOUT CONCERN OR COMPLAINT AT THIS TIME, WILL ENDORSE TO NIGHT NURSE.
--- NOTE | 2017-12-24 19:40 | NUR ---
MS RN INITIAL NOTES PT IS IN BED AWAKE AND ALERT, ABLE TO MAKE NEEDS KNOWN. BREATHING EVENLY AND UNLABORED ON RA, NO SIGNS OF SOB OR DISTRESS. IV ACCESS IS INTACT AND PATENT. INCENTIVE SPIROMETER AT BEDSIDE. BED IS IN LOW AND LOCKED POSITION, CALL LIGHT WITHIN REACH. WILL CONTINUE TO MONITOR PT
[2017-12-24 20:00] VITALS: BP 100/59
[2017-12-24] MEDS: ENOXAPARIN SODIUM 40 MG/0.4 ML DISP.SYRIN SQ SCH (21:26)
[2017-12-24 22:16] LABS: URINE SODIUM, RANDOM 149 mmol/l (40-220)
[2017-12-24 22:18] LABS: OSMOLALITY,URINE 486 mOS/kg (340-1090)
[2017-12-25] MEDS: IPRATROPIUM NEB FS 0.5 MG/2.5 ML AMPUL.NEB NEB SCH ×3 (02:17→12:43)
[2017-12-25] MEDS: ALBUTEROL FS 2.5 MG/0.5 ML VIAL.NEB NEB SCH ×3 (02:17→12:44)
[2017-12-25] MEDS: METOCLOPRAMIDE HCL 10 MG/2 ML VIAL IV SCH ×2 (05:18→12:43)
--- NOTE | 2017-12-25 06:39 | NUR ---
MS RN INITIAL NOTES PT IS IN BED RESTING. BREATHING EVENLY AND UNLABORED ON RA. NO SOB NOTED. IV ACCESS IS INTACT AND PATENT. NO ACUTE CHANGES THROUGHOUT THE SHIFT. PT REFUSES AM CARE. BED IS IN LOW AND LOCKED POSITION, CALL LIGHT WITHIN REACH. WILL ENDORSE TO DAYSHIFT
[2017-12-25 07:24] LABS: HEMATOCRIT 28 % (39-51); HEMOGLOBIN 9.8 g/dL (13.5-17.5); MEAN CORPUSCULAR HEMOGLOBIN 35 PG (26.0-33.0); MEAN CORPUSCULAR HGB CONC 36 g/dl (31.0-36.0); MEAN CORPUSCULAR VOLUME 99 fL (80-96); PLATELET COUNT (AUTO) 227 /CMM (150-450); RDW COEFFICIENT OF VARIATION 15.8 (11.5-15.0); RED BLOOD CELL COUNT(AUTO) 2.79 MIL/uL (4.5-6.0); WHITE BLOOD COUNT (AUTO) 7.6 K/uL (4.3-11.0)
--- NOTE | 2017-12-25 07:45 | NUR ---
MS RN OPENING NOTES RECEIVED PATIENT AWAKE, A&OX4, AND VERBALLY RESPONSIVE, ABLE TO MAKE NEEDS KNOWN. RESPIRATIONS EVEN AND UNLABORED, DENIES SOB ON RA, IN NO APPARENT PAIN OR DISCOMFORT AT THIS TIME. MECHE MIDLINE PATENT AND INTACT NO REDNESS OR INFILTRATION NOTED. DELATORRE CATHETER DRAINING, PATENT AND INTACT. SAFETY MEASURES IN PLACE, CALL LIGHT WITHIN EASY REACH WILL CONTINUE TO MONITOR Addendum: 12/25/17 at 0804 by ANN WHARTON RN DELATORRE WAS DISCONTINUED.
[2017-12-25 07:56] LABS: ALBUMIN 1.9 g/dL (3.4-5.0); CALCIUM, SERUM 8.4 mg/dL (8.5-10.1); CREATININE 0.8 mg/dL (0.6-1.3); MAGNESIUM 1.8 mg/dL (1.8-2.4); PHOSPHORUS 2.8 mg/dL (2.5-4.9); POTASSIUM 3.7 mmol/L (3.5-5.1)
[2017-12-25 08:00] VITALS: BP 105/68
[2017-12-25] MEDS: DOCUSATE SODIUM 100 MG CAPSULE PO SCH (08:21)
[2017-12-25] MEDS: RIFAXIMIN 550 MG TABLET PO SCH (08:21)
[2017-12-25] MEDS: PANTOPRAZOLE 40 MG TABLET.DR PO SCH (08:21)
[2017-12-25] MEDS: SUCRALFATE 1 G TABLET PO SCH ×2 (08:23→12:42)
[2017-12-25] MEDS: HYDROCODONE/APAP 5/325MG 1 EACH TABLET PO PRN (08:23)
[2017-12-25] MEDS: GABAPENTIN 300 MG CAPSULE PO SCH ×2 (08:23→12:42)
[2017-12-25 10:20] LABS: ABG BASE EXCESS -3.5 mmol/L; ABG OXYGEN SATURATION 96.7 % (92.0-98.5); ABG PCO2 26.8 mmHg (35.0-45.0); ABG PH 7.471 (7.350-7.450); ABG PO2 93.9 mmHg (75.0-100.0); AaDO2 23.7 mmHg; COHb 0.6 % (0.5-1.5); MetHb 0.3 % (0.0-1.5); O2Hb 95.8 % (94.0-97.0); SITE, ABG Right Brachial; VENT MODE, BG ROOM AIR
[2017-12-25] MEDS: ALPRAZOLAM 0.25 MG TABLET PO PRN ×2 (10:55→11:05)
[2017-12-25] MEDS ORDERED: HYDR-3326 PO (11:05)
[2017-12-25] MEDS ORDERED: RIFA550T PO (11:05)
[2017-12-25] MEDS ORDERED: PANT40TA2 PO (11:05)
[2017-12-25] MEDS ORDERED: GABA300C PO (11:05)
[2017-12-25] MEDS ORDERED: SUCR1TAB PO (11:05)
[2017-12-25] MEDS ORDERED: LACT10SO PO (11:05)
[2017-12-25 11:09] LABS: EOSINOPHILS % (MANUAL) 1 % (0-4); LYMPHOCYTES % (MANUAL) 9 % (16-48); MONOCYTES % (MANUAL) 1 % (0-11.0); NEUTROPHILS % (MANUAL) 89 (42-76)
--- NOTE | 2017-12-25 11:26 | NUR ---
BRADLEY received a call from pt' RN Naresh informing BRADLEY that pt's physician Wes Guzmán would like a letter for the pt. stating the pt. is unable to go to work until cleared by his primary care physician. BRADLEY typed letter and gave letter to MARKIE Guzmán to sign. BRADLEY gave signed copy of letter to pt's CHARITY Infante to give to the patient.
--- NOTE | 2017-12-25 13:30 | NUR ---
ms supervisor furnace process notes Discharge instructions given to patient and able to understand. Prescription given. Signed discharge paper and belongings list. No items missing. Patient is alert and oriented x 4, verbally responsive. No complaint of pain or discomfort at this time, nor chest pain. patient left in stable condition accompanied by his mother. Pneumonia and flu vaccine not given flu vaccine already received 09/2017, PNA vaccine not given due to <65yeasr old. Vital signs checked and recorded. MD and charge nurse made aware. No picture taken due to skin intact. Health teaching and education rendered and able to understand. Informed regarding to follow up with primary health care physician in 1-2 weeks, GI and Doctor Jaime pain management doctor.
== END 2017-12-25 13:38 | disposition home health service (06) | DRG 917 ==
LOC: ER 20:33 → ICU 22:17 → TELE 12-19 21:06 → MED 12-20 08:57
PROVIDERS: ADMIT Nurse Practitioner Acute Care; ATTEND Nurse Practitioner Acute Care
PROC: 0BH17EZ Insertion of Endotracheal Airway into Trachea, Via Natural or Artificial Opening (ICD-10-PCS; principal; 2017-12-13)
PROC: 5A1955Z Respiratory Ventilation, Greater than 96 Consecutive Hours (ICD-10-PCS; principal; 2017-12-13)
PROC: 02HV33Z Insertion of Infusion Device into Superior Vena Cava, Percutaneous Approach (ICD-10-PCS; 2017-12-14)
PROC: B548ZZA Ultrasonography of Superior Vena Cava, Guidance (ICD-10-PCS; 2017-12-14)
PROC: 0DB58ZX Excision of Esophagus, Via Natural or Artificial Opening Endoscopic, Diagnostic (ICD-10-PCS; 2017-12-23)
DX: T42.4X1A Poisoning by benzodiazepines, accidental (unintentional), initial encounter (principal); N17.0 Acute kidney failure with tubular necrosis; G92 Toxic encephalopathy; J96.02 Acute respiratory failure with hypercapnia; J96.01 Acute respiratory failure with hypoxia; R56.9 Unspecified convulsions; R57.8 Other shock; K22.10 Ulcer of esophagus without bleeding; K56.7 Ileus, unspecified; K86.1 Other chronic pancreatitis; E87.1 Hypo-osmolality and hyponatremia; E87.2 Acidosis; J98.11 Atelectasis; K70.10 Alcoholic hepatitis without ascites; D53.9 Nutritional anemia, unspecified; E03.9 Hypothyroidism, unspecified; E87.6 Hypokalemia; K70.40 Alcoholic hepatic failure without coma; Z87.11 Personal history of peptic ulcer disease; E80.6 Other disorders of bilirubin metabolism; E83.39 Other disorders of phosphorus metabolism; Y92.009 Unspecified place in unspecified non-institutional (private) residence as the place of occurrence of the external cause; D69.59 Other secondary thrombocytopenia; R73.9 Hyperglycemia, unspecified; Y90.0 Blood alcohol level of less than 20 mg/100 ml; K80.20 Calculus of gallbladder without cholecystitis without obstruction; K44.9 Diaphragmatic hernia without obstruction or gangrene; K21.0 Gastro-esophageal reflux disease with esophagitis; F10.20 Alcohol dependence, uncomplicated; D72.825 Bandemia; D75.89 Other specified diseases of blood and blood-forming organs; G89.29 Other chronic pain
CPT/HCPCS: 31720; 36415; 36569; 36600; 70450-TC; 71045-TC; 74181-TC; 76700-TC; 80048-TC; 80053-TC; 80061-TC; 80074; 80076-TC; 80305; 81000-TC; 82140-TC; 82272-TC; 82550-TC; 82553-TC; 82570-TC; 82803-TC; 82962-TC; 83605-TC; 83690-TC; 83735-TC; 83935-TC; 83970; 84100-TC; 84155; 84155-TC; 84165; 84300-TC; 84443-TC; 84484-TC; 85025-TC; 85730-TC; 87081-TC; 87086-TC; 88305-TC; 93307-TC; 94002-TC; 94003-TC; 94640-TC; 94799-TC; 97116-TC; 97530-TC; 99082-TC; A4216; A4606; A6402; A9563; C1751; G0480; J1650; J2060; J2270; J2405; J2704; J2765; J3411; J3475; J3480; J3490; J7030; J7060; Z7610

== ENCOUNTER 2018-01-31 16:38 | Inpatient (IN) | payer BC ==
[~2018-01-31] VITALS: Ht 160 cm; Wt 76.2 kg
[~2018-01-31 16:38] MED LIST: FOLI1TAB16 PO; GABA300C PO; HYDR-3974 PO; LACT10SO PO; ONDA4TAB8 PO; PANT40TA2 PO; RIFA550T PO; SUCR1TAB PO; TEMA7.5C12 PO
[2018-01-31] MEDS ORDERED: Magnesium 1GM/D5W 100ML PREMIX 200 ML IV ONE ×2 (16:40→16:48)
[2018-01-31] MEDS ORDERED: OXYMETAZOLINE HCL NASAL SPRAY 30 ML BOTTLE NS ONE (16:40)
[2018-01-31] MEDS ORDERED: LIDOCAINE 4% PF AMPUL 40 MG/ML AMPUL TP ONE (16:40)
[2018-01-31] MEDS ORDERED: methylPREDNISolone SOD SUCC 125 MG/2ML VIAL ONE (16:41)
[2018-01-31] MEDS ORDERED: ALBUTEROL FS 2.5 MG/3 ML VIAL.NEB ONE (16:45)
[2018-01-31] MEDS ORDERED: IPRATROPIUM NEB FS 0.5 MG/2.5 ML AMPUL.NEB ONE (16:45)
--- NOTE | 2018-01-31 16:45 | NUR ---
BIBRA C/O SOB X 1 HOUR LATHE OPERATOR. ARRIVED ON BREATHING TREATMENT WITH EMT. 75% O2 ON ROOM AIR LATHE OPERATOR, 100% O2 SAT WITH BREATHING TX. A/OX 4 AT THIS TIME. BREATHING EVEN, TACHYPNIC, STILL SHORT OF BREATH. NAD, VITALS STABLE. SAFETY AND COMFORT MEASURES IN PLACE. AWAITING MD ORDERS.
[2018-01-31 16:48] LABS: BASOPHILS # (AUTO) 0.1 /CMM (0.0-0.2); BASOPHILS % (AUTO) 1.2 % (0.0-2.0); EOSINOPHILS # (AUTO) 0.2 /CMM (0.0-0.7); HEMATOCRIT 45 % (39-51); HEMOGLOBIN 15.5 g/dL (13.5-17.5); LYMPHOCYTES # (AUTO) 4.2 /CMM (0.8-4.8); LYMPHOCYTES % (AUTO) 37.1 % (20.0-44.0); MEAN CORPUSCULAR HEMOGLOBIN 34 PG (26.0-33.0); MEAN CORPUSCULAR HGB CONC 35 g/dl (31.0-36.0); MEAN CORPUSCULAR VOLUME 99 fL (80-96); MONOCYTES # (AUTO) 0.9 /CMM (0.1-1.30); MONOCYTES % (AUTO) 7.9 % (2.0-12.0); NEUTROPHILS # (AUTO) 5.8 /CMM (1.8-8.9); NEUTROPHILS % (AUTO) 51.8 % (43.0-81.0); PLATELET COUNT (AUTO) 278 /CMM (150-450); RDW COEFFICIENT OF VARIATION 12.4 (11.5-15.0); RED BLOOD CELL COUNT(AUTO) 4.52 MIL/uL (4.5-6.0); WHITE BLOOD COUNT (AUTO) 11.2 K/uL (4.3-11.0)
--- NOTE | 2018-01-31 16:55 | NUR ---
PER KRISTA LUTHER TO GIVE 2 BAGS OF MAG IV OVER 30 MINUTES.
[2018-01-31] MEDS ORDERED: ALBUTEROL FS 2.5 MG/3 ML VIAL.NEB CONTNEB ONE (17:00)
[2018-01-31] MEDS ORDERED: methylPREDNISolone SOD SUCC 125 MG/2ML VIAL IV ONE (17:00)
[2018-01-31] MEDS ORDERED: ALBUTEROL FS 2.5 MG/3 ML VIAL.NEB NEB ONE (17:00)
[2018-01-31] MEDS ORDERED: IPRATROPIUM NEB FS 0.5 MG/2.5 ML AMPUL.NEB NEB ONE (17:00)
[2018-01-31 17:22] LABS: ALBUMIN 3.6 g/dL (3.4-5.0); BILIRUBIN,DIRECT 0.6 mg/dL (0.0-0.2); BILIRUBIN,TOTAL 0.8 mg/dL (0.2-1.0); CALCIUM, SERUM 9.4 mg/dL (8.5-10.1); CREATININE 0.8 mg/dL (0.6-1.3); POTASSIUM 3.7 mmol/L (3.5-5.1)
--- NOTE | 2018-01-31 17:49 | NUR ---
CALLED , LEFT MESSAGE ON VOICEMAIL
--- NOTE | 2018-01-31 17:49 | NUR ---
CALLED , LEFT MESSAGE ON VOICEMAIL
--- NOTE | 2018-01-31 17:51 | NUR ---
CALLED DR.DAVID APONTE, LEFT A MESSAGE ON VOICEMAIL
[2018-01-31] MEDS ORDERED: RACEPINEPHRINE HCL 2.25% NEB 0.5 ML VIAL.NEB IH ONE ×2 (17:57→18:00)
--- NOTE | 2018-01-31 18:00 | NUR ---
CALLED , TRANSFERRED CALL TO .
--- NOTE | 2018-01-31 18:15 | NUR ---
DR WILHELM ON THE PHONE WITH DR MARIN PROPOSAL EDITOR SURGEON
--- NOTE | 2018-01-31 18:15 | NUR ---
CALLED AND LEFT DR ART A VOICEMAIL
--- NOTE | 2018-01-31 18:16 | NUR ---
DR WILHELM ON THE PHONE WITH DR FADI CARDONA
--- NOTE | 2018-01-31 18:40 | NUR ---
PATIENT'S MOTHER: GHASSAN [phone] HOME / [phone] CELL.
--- NOTE | 2018-01-31 19:01 | NUR ---
REPORT GIVEN TO LARRY NASH FOR ASHLEE.
[2018-01-31 19:10] LABS: INR 1.08 (0.87-1.13)
--- NOTE | 2018-01-31 19:10 | NUR ---
ER ALONG WITH ENT ESTEFANÍA AT BEDSIDE WITH BRONCHOSCOPE EVAL FOR TRACH TUBE. WILL CONTINUE TO MONITOR
--- NOTE | 2018-01-31 19:15 | NUR ---
INFOMRED CONSENT RECEIVED FOR POSSIBLE TRACH PROCEDURE
--- NOTE | 2018-01-31 19:20 | NUR ---
CT SCAN DONE. WENT WITH PATIENT. VSS AND NO MEDICAL INTERVENTION NEEDED. ENT HAS SEEN CT AND STATED NO PROCEDURE NEEDED AT THIS TIME.
--- NOTE | 2018-01-31 19:56 | NUR ---
PT GOING TO ICU 256 FOR HYPOXEMIA, ACCEPTED BY .
[2018-01-31] MEDS ORDERED: HYDROCODONE/APAP 5/325MG 1 EACH TABLET PO PRN (20:00)
[2018-01-31] MEDS ORDERED: ONDANSETRON HCL/PF 4 MG/2 ML VIAL IVP PRN (20:00)
[2018-01-31] MEDS ORDERED: ACETAMINOPHEN 325 MG TABLET PO PRN (20:00)
[2018-01-31] MEDS ORDERED: Z GUARD REMEDY 2 OZ OINT TP PRN (20:00)
[2018-01-31] MEDS ORDERED: MAGNESIUM HYDROXIDE 30 ML UDC PO PRN (20:00)
[2018-01-31] MEDS ORDERED: ACETAMINOPHEN 650 MG/SUPP.RECT RC PRN (20:00)
[2018-01-31] MEDS ORDERED: MAG HYDROX/AL HYDROX/SIMETH 30 ML UDC PO PRN (20:00)
[2018-01-31] MEDS ORDERED: ALBUTEROL FS 2.5 MG/0.5 ML VIAL.NEB NEB PRN (20:00)
--- NOTE | 2018-01-31 20:23 | NUR ---
CALLED ICU FOR REPORT. AWAITING CALL BACK
[2018-01-31] MEDS ORDERED: MORPHINE SULFATE INJ 4 MG/ML DISP.SYRIN IV PRN (20:30)
--- NOTE | 2018-01-31 20:53 | NUR ---
REPORT GIVEN TO NOAH
[2018-01-31] MEDS ORDERED: ENOXAPARIN SODIUM 40 MG/0.4 ML DISP.SYRIN SQ SCH (21:00)
[2018-01-31] MEDS ORDERED: CEFTRIAXONE 1 G in IV D5W 50 ML IV SCH (21:00)
[2018-01-31 21:04] VITALS: BP 148/99
[2018-01-31] MEDS: IV D5/0.45 NACL 1,000 ML IV PRN (21:11)
[2018-01-31 22:00] VITALS: BP 123/71
--- NOTE | 2018-01-31 22:34 | NUR ---
ORACLE APPLICATION CONSULTANT. ADMISSION. ADMITTED THE PT FROM ER VIA [facility], ADMITTED FOR RESPIRATORY FAILURE.AWAKE, ALERT, FOLLOW COMMANDS. OXYGEN NON REBREATHER SAT 98%. PT IS TACHYCARDIAC MONITOR SHOWING S TACH. IV LT AC 20G. IVF D51/2NS @ 75 ML/H . HOB ELEVATED. WILL CONTINUE TO MONITOR VITALS.
[2018-01-31 23:00] VITALS: BP 147/72
[2018-01-31 23:30] VITALS: BP 114/69
[2018-02-01] VITALS (35 sets, daily range): BP systolic 74–134; BP diastolic 47–84
[2018-02-01] MEDS: methylPREDNISolone SOD SUCC 40 MG/ML VIAL IV SCH ×4 (00:53→17:05)
--- NOTE | 2018-02-01 03:25 | NUR ---
WORK ORDER SORTING CLERK. AM CARE, ORAL CARE, BED BATH GIVEN. LINEN CHANGED. REMAINING SAME OXYGEN NON REBREATHER . SAT 99%. PLAN NURSE SHOWING NSR. IV LT AC 20G. IVF D5 1/2 NS 75ML/H. HOB ELEVATED. WILL CONTINUE TO MONITOR VITALS. PT IS NPO.
[2018-02-01 05:02] LABS: BASOPHILS % (AUTO) 0.1 % (0.0-2.0); HEMATOCRIT 39 % (39-51); HEMOGLOBIN 13.5 g/dL (13.5-17.5); LYMPHOCYTES # (AUTO) 0.6 /CMM (0.8-4.8); LYMPHOCYTES % (AUTO) 7.2 % (20.0-44.0); MEAN CORPUSCULAR HEMOGLOBIN 35 PG (26.0-33.0); MEAN CORPUSCULAR HGB CONC 34 g/dl (31.0-36.0); MEAN CORPUSCULAR VOLUME 101 fL (80-96); MONOCYTES # (AUTO) 0.1 /CMM (0.1-1.30); MONOCYTES % (AUTO) 1.8 % (2.0-12.0); NEUTROPHILS # (AUTO) 7.2 /CMM (1.8-8.9); NEUTROPHILS % (AUTO) 90.9 % (43.0-81.0); PLATELET COUNT (AUTO) 198 /CMM (150-450); WHITE BLOOD COUNT (AUTO) 7.9 K/uL (4.3-11.0)
[2018-02-01 05:16] LABS: CALCIUM, SERUM 9.6 mg/dL (8.5-10.1); MAGNESIUM 1.8 mg/dL (1.8-2.4); PHOSPHORUS 3.5 mg/dL (2.5-4.9); POTASSIUM 4.7 mmol/L (3.5-5.1)
--- NOTE | 2018-02-01 07:10 | NUR ---
RN NOTES RECEIVED PT ON BED, A/Ox4, NO NR MASK , O2 SAT 99%, NO SOB NOTED, PT STATED IT IS HARD TO SLEEP WITH NR MASK ON , CRISTINA ANY DISTRESS AT THIS TIME , ON TELE SR HR IN 90'S , NPO , L AC IV SITE G 20 CLEAN , DRY INTACT, WITH D51/2 NS AT 75CC/HR RUNNING , SR UP x3. CALL LIGHT WITHIN EASY REACH, BED LOCKED AND IN LOWEST POSITION , CONTINUE TO MONITOR PT CLSOELY AND NOTIFY MD FOR ANY SIGNIFICANT CHANGES.
[2018-02-01] MEDS: PANTOPRAZOLE 40 MG VIAL IV SCH (08:17)
[2018-02-01] MEDS: IV D5/0.45 NACL 1,000 ML IV PRN (10:45)
--- NOTE | 2018-02-01 11:00 | NUR ---
RN NOTES PT PLACED ON 4L O2 N/C , O2 SAT 98%, PT STABLE . AWAITING TO BE TRANSFER TO [place] PER MD ORDER FOR HIGHER LEVEL OF CARE.
--- NOTE | 2018-02-01 15:00 | NUR ---
RN NOTES PT STATED HE IS HUNGRY AND WANT TO EAT . JORDYN HOME AND SCHOOL VISITOR NOTIFIED, ORDER RECEIVED TO KEEP PT NPO AT THIS TIME . STILL WAITING FOR BED FROM [facility] TO BE TRANSFER.
--- NOTE | 2018-02-01 18:37 | NUR ---
RN NOTES VSS STABLE , O2 SAT 100% ON 4L O2 N/C , STILL WAITING FOR A BED AT [facility]. NO SIGNIFICANT CHANGES NOTED ON THIS SHIFT , WILL ENDORSE TO PM SHIFT NURSE FOR ASHLEE
--- NOTE | 2018-02-01 19:30 | NUR ---
GRADING SUPERVISOR INITIAL NOTE PT RECEIVED AWAKE IN BED. A/O X4 AND ABLE TO VERBALIZE NEEDS. ON 4L OF O2 VIA NC AND SATURATING 100%. TELE- SINUS RHYTHM 77. IV LAC #20 CLEAN, DRY AND PATENT WITH FLUIDS INFUSING. NO C/O PAIN OR DISCOMFORT NOTED AT THIS TIME. CALL LIGHT WITHIN REACH. WILL CONTINUE TO MONITOR.
[2018-02-02] VITALS (21 sets, daily range): BP systolic 86–112; BP diastolic 37–66
[2018-02-02] MEDS: IV D5/0.45 NACL 1,000 ML IV PRN ×2 (00:14→13:27)
[2018-02-02] MEDS: methylPREDNISolone SOD SUCC 40 MG/ML VIAL IV SCH ×4 (00:16→17:55)
[2018-02-02 05:20] LABS: BASOPHILS % (AUTO) 0.2 % (0.0-2.0); HEMATOCRIT 41 % (39-51); HEMOGLOBIN 13.9 g/dL (13.5-17.5); LYMPHOCYTES # (AUTO) 0.7 /CMM (0.8-4.8); LYMPHOCYTES % (AUTO) 4.2 % (20.0-44.0); MEAN CORPUSCULAR HEMOGLOBIN 34 PG (26.0-33.0); MEAN CORPUSCULAR HGB CONC 34 g/dl (31.0-36.0); MEAN CORPUSCULAR VOLUME 100 fL (80-96); MONOCYTES # (AUTO) 0.5 /CMM (0.1-1.30); MONOCYTES % (AUTO) 3.2 % (2.0-12.0); NEUTROPHILS # (AUTO) 14.5 /CMM (1.8-8.9); NEUTROPHILS % (AUTO) 92.4 % (43.0-81.0); PLATELET COUNT (AUTO) 212 /CMM (150-450); RDW COEFFICIENT OF VARIATION 13.1 (11.5-15.0); RED BLOOD CELL COUNT(AUTO) 4.04 MIL/uL (4.5-6.0); WHITE BLOOD COUNT (AUTO) 15.7 K/uL (4.3-11.0)
[2018-02-02 05:33] LABS: CALCIUM, SERUM 9.7 mg/dL (8.5-10.1); CREATININE 0.7 mg/dL (0.6-1.3); POTASSIUM 4.5 mmol/L (3.5-5.1)
--- NOTE | 2018-02-02 06:49 | NUR ---
MIXING MACHINE TENDER CORK GASKET CLOSING NOTE PT REMAINED STABLE DURING SHIFT. NO C/O DISCOMFORT. NO ACUTE DISTRESS NOTED. ALL NEEDS ATTENDED TO PROMPTLY. ASSISTED TO THE BEDSIDE COMMODE NEEDED. CALL LIGHT WITHIN REACH. WILL ENDORSE TO NEXT SHIFT FOR CONTINUITY OF CARE.
--- NOTE | 2018-02-02 07:15 | NUR ---
MAIL MESSENGER NOTE: PT A/O X4. NO C/O PAIN OR SOB. NC 4L SPO2 100%. ALL SAFETY MEASURES IN PLACE. PT NPO. D51/2 NS @ 75 ML/HR.
[2018-02-02] MEDS: PANTOPRAZOLE 40 MG VIAL IV SCH (08:14)
[2018-02-02 10:11] LABS: BAND % (MANUAL) 2 % (0.0-5.0); LYMPHOCYTES % (MANUAL) 4 % (16-48); MONOCYTES % (MANUAL) 6 % (0-11.0); NEUTROPHILS % (MANUAL) 88 (42-76)
--- NOTE | 2018-02-02 15:58 | NUR ---
Still awaiting bed at [facility]; higher level of care referral sent to [facility] [phone], spoke with Jacquelin at transfer ctr- will present case to ENT team for review and acceptance. Will contact nursing station for progress/update. Addendum: 02/02/18 at 2100 by MANUEL LIN RN Amended: Links added.
--- NOTE | 2018-02-02 16:30 | NUR ---
TATIANA RN NOTE PT TRANSFERRED FROM ICU BY [facility] FOR ASHLEE. WILL CONTINUE TO CARE FOR PT V/S STABLE NO C/O PAIN. ALL SAFETY MEASURES IN PLACE.
--- NOTE | 2018-02-02 16:40 | NUR ---
BED PLACEMENT COORDINATOR NOTE DR. PHILLIPS DISCONTINUED D5 1/2 PT ON REGULAR DIET.
--- NOTE | 2018-02-02 17:37 | NUR ---
Pt recently extubated, BRADLEY will provide referrals on next business day 02/05/18.
--- NOTE | 2018-02-02 20:27 | NUR ---
TATIANA RN INITIAL NOTE PT RECEIVED AWAKE IN BED. A/O X4 AND ABLE TO VERBALIZE NEEDS. ON 4L OF O2 VIA NC AND SATURATING 100%. TELE- SINUS RHYTHM 64. IV LAC #20 CLEAN, DRY. NO C/O PAIN OR DISCOMFORT NOTED AT THIS TIME. CALL LIGHT WITHIN REACH. WILL CONTINUE TO MONITOR.
[2018-02-03] MEDS: methylPREDNISolone SOD SUCC 40 MG/ML VIAL IV SCH ×3 (00:04→12:24)
[2018-02-03 00:24] VITALS: BP 95/51
[2018-02-03 04:00] VITALS: BP 100/62
[2018-02-03 05:54] LABS: BASOPHILS % (AUTO) 0.2 % (0.0-2.0); HEMATOCRIT 39 % (39-51); HEMOGLOBIN 13.2 g/dL (13.5-17.5); LYMPHOCYTES # (AUTO) 0.6 /CMM (0.8-4.8); LYMPHOCYTES % (AUTO) 5.4 % (20.0-44.0); MEAN CORPUSCULAR HEMOGLOBIN 35 PG (26.0-33.0); MEAN CORPUSCULAR HGB CONC 34 g/dl (31.0-36.0); MEAN CORPUSCULAR VOLUME 101 fL (80-96); MONOCYTES # (AUTO) 0.4 /CMM (0.1-1.30); MONOCYTES % (AUTO) 3.7 % (2.0-12.0); NEUTROPHILS # (AUTO) 9.7 /CMM (1.8-8.9); NEUTROPHILS % (AUTO) 90.7 % (43.0-81.0); PLATELET COUNT (AUTO) 197 /CMM (150-450); RDW COEFFICIENT OF VARIATION 13.2 (11.5-15.0); WHITE BLOOD COUNT (AUTO) 10.7 K/uL (4.3-11.0)
--- NOTE | 2018-02-03 06:10 | NUR ---
TATIANA RN CLOSING NOTE PT ENDORSED AWAKE IN BED. A/O X4 AND ABLE TO VERBALIZE NEEDS. ON 4L OF O2 VIA NC AND SATURATING 100%. TELE- SINUS RHYTHM 63. IV LAC #20 CLEAN, DRY. NO C/O PAIN OR DISCOMFORT NOTED AT THIS TIME. CALL LIGHT WITHIN REACH. WILL CONTINUE TO MONITOR.
[2018-02-03 06:48] LABS: CALCIUM, SERUM 9.1 mg/dL (8.5-10.1); CREATININE 0.8 mg/dL (0.6-1.3); MAGNESIUM 2.1 mg/dL (1.8-2.4); PHOSPHORUS 3.2 mg/dL (2.5-4.9); POTASSIUM 4.3 mmol/L (3.5-5.1)
[2018-02-03 08:00] VITALS: BP 109/62
[2018-02-03] MEDS: PANTOPRAZOLE 40 MG VIAL IV SCH (09:29)
[2018-02-03 12:00] VITALS: BP 92/55
--- NOTE | 2018-02-03 14:00 | NUR ---
RN NOTE PT AOAX4, LEFT AMA WITH FRIEND, VIA PRIVATE TRANSPORTATION "TO GO TO ER OF DIFFERENT HOSPITAL", HE COULD NOT WAIT ANY LONGER TO BE TRANSFERRED TO HIGHER LEVEL CARE FOR HIS DIAGNOSIS. PAPERWORK GIVEN TO PT, CD WITH IMAGES GIVEN TO PT, PT SIGNED AMA PAPER, ID BAND AND IV ACCESS REMOVED, BELONGINGS LIST SIGNED, BELONGINGS PROVIDED TO PT.
--- NOTE | 2018-02-05 17:39 | NUR ---
Per RN Juanis pt. has left AMA with friend. Qa Software Tester was unable to conduct assessment.
== END 2018-02-03 14:28 | disposition left against medical advice (07) | DRG 154 ==
LOC: ER 16:39 → ICU 20:05 → TELE-TD 02-02 17:14
PROVIDERS: ADMIT Internal Medicine; ATTEND Internal Medicine
PROC: 0CJS8ZZ Inspection of Larynx, Via Natural or Artificial Opening Endoscopic (ICD-10-PCS; principal; 2018-01-31)
DX: J38.6 Stenosis of larynx (principal); J96.01 Acute respiratory failure with hypoxia; K22.10 Ulcer of esophagus without bleeding; G62.9 Polyneuropathy, unspecified; J39.8 Other specified diseases of upper respiratory tract; K70.30 Alcoholic cirrhosis of liver without ascites; K29.20 Alcoholic gastritis without bleeding; E03.9 Hypothyroidism, unspecified; F17.200 Nicotine dependence, unspecified, uncomplicated; K21.9 Gastro-esophageal reflux disease without esophagitis; Z87.11 Personal history of peptic ulcer disease; R73.9 Hyperglycemia, unspecified; T38.0X5A Adverse effect of glucocorticoids and synthetic analogues, initial encounter; Y92.89 Other specified places as the place of occurrence of the external cause; F10.10 Alcohol abuse, uncomplicated
CPT/HCPCS: 36415; 70360-TC; 70490-TC; 71045-TC; 80048-TC; 80076-TC; 83735-TC; 83880; 84100-TC; 85025-TC; 85610-TC; 85730-TC; A4606; A6402; C9113; J0696; J2920; J2930; J3475; J3490; J7060; Z7610

== ENCOUNTER 2019-07-25 17:35 | Inpatient (IN) | payer BC ==
[2019-07-25] MEDS ORDERED: ONDANSETRON HCL/PF 4 MG/2 ML VIAL IVP ONE (18:00)
[2019-07-25] MEDS ORDERED: IV NS 0.9% 1,000 ML BAG IV ONE ×2 (18:00→20:30)
[2019-07-25] MEDS ORDERED: Folic acid 1 MG in IV D5W 50 ML IV SCH (18:00)
[2019-07-25] MEDS ORDERED: Thiamine 100 MG in IV D5W 50 ML IV SCH (18:00)
[2019-07-25] MEDS ORDERED: IV NS 0.9% 250 ML IV ONE (18:54)
[2019-07-25] MEDS ORDERED: IOHEXOL-300 100 ML VIAL IV ONE (18:54)
[2019-07-25] MEDS ORDERED: CT SWABBABLE VALVE TRANS SET 1 EA INFUS.SET MC ONE (18:54)
[2019-07-25] MEDS ORDERED: ONDANSETRON HCL/PF 4 MG/2 ML VIAL ONE ×2 (19:11→21:01)
[2019-07-25] MEDS ORDERED: MORPHINE SULFATE INJ 2 MG/ML DISP.SYRIN IV ONE (20:30)
[2019-07-25] MEDS ORDERED: MORPHINE SULFATE INJ 4 MG/ML DISP.SYRIN ONE (20:33)
[2019-07-25] MEDS ORDERED: ONDANSETRON HCL/PF - ER 4 MG/2 ML VIAL IV ONE (21:00)
[2019-07-25] MEDS ORDERED: IV NS 0.9% 1,000 ML IV SCH (21:30)
[2019-07-25] MEDS ORDERED: ZOLPIDEM TARTRATE 5 MG TABLET PO PRN (21:30)
[2019-07-25] MEDS ORDERED: D5W IV ONE (21:30)
[2019-07-25] MEDS ORDERED: MORPHINE SULFATE INJ 2 MG/ML DISP.SYRIN IV PRN (21:30)
[2019-07-25] MEDS ORDERED: MAG HYDROX/AL HYDROX/SIMETH 30 ML UDC PO PRN (21:30)
[2019-07-25] MEDS ORDERED: HYDROCODONE/APAP 5/325MG 1 EACH TABLET PO PRN (21:30)
[2019-07-25] MEDS ORDERED: ACETAMINOPHEN 325 MG TABLET PO PRN (21:30)
[2019-07-25] MEDS ORDERED: POTASSIUM PHOSPHATE IV ONE (21:30)
[2019-07-25] MEDS ORDERED: PHARMACY ADD 1 AMP MVI TO IVF DAILY ONE BAG XX PRN (21:30)
[2019-07-25] MEDS ORDERED: MAGNESIUM HYDROXIDE 30 ML UDC PO PRN (21:30)
[2019-07-25] MEDS ORDERED: Z GUARD REMEDY 2 OZ OINT TP PRN (21:30)
[2019-07-25] MEDS ORDERED: ONDANSETRON HCL/PF 4 MG/2 ML VIAL IVP PRN (21:30)
[2019-07-25] MEDS: SUCRALFATE 1 G TABLET PO SCH (22:00)
[2019-07-25] MEDS: Magnesium 1GM/D5W 100ML PREMIX 100 ML IV SCH ×2 (22:35→23:57)
[2019-07-25] MEDS: LORAZEPAM INJ 2 MG/ML VIAL IV PRN (23:24)
[2019-07-25] MEDS: POTASSIUM PHOSPHATE MM 7.5 MMOL in IV D5W 100 ML IV SCH (23:57)
[2019-07-26] MEDS ORDERED: Magnesium 1GM/D5W 100ML PREMIX 100 ML IV ONE (01:46)
[2019-07-26] MEDS: Magnesium 1GM/D5W 100ML PREMIX 100 ML IV SCH (01:47)
[2019-07-26] MEDS: POTASSIUM PHOSPHATE MM 7.5 MMOL in IV D5W 100 ML IV SCH (02:58)
[2019-07-26] MEDS ORDERED: LACTULOSE 10 G/15 ML UDC (PYXIS) PO PRN (08:30)
[2019-07-26] MEDS: SUCRALFATE 1 G TABLET PO SCH ×4 (08:38→22:00)
[2019-07-26] MEDS: CYANOCOBALAMIN 500 MCG TABLET PO SCH (08:38)
[2019-07-26] MEDS: RIFAXIMIN 550 MG TABLET PO SCH ×2 (08:38→17:45)
[2019-07-26] MEDS: GABAPENTIN 300 MG CAPSULE PO SCH ×3 (08:38→17:45)
[2019-07-26] MEDS: PANTOPRAZOLE 40 MG TABLET.DR PO SCH ×2 (08:39→21:00)
[2019-07-26] MEDS: MVI ADULT 10ML VIAL = 1AMP 10 ML in IV NS 0.9% 1,000 ML IV PRN (11:14)
[2019-07-26] MEDS: POTASSIUM CL. PREMIX PERIPHER. 50 ML IV SCH ×6 (12:37→18:55)
[2019-07-26] MEDS ORDERED: Sodium Phosphate 15 MMOL in IV D5W 250 ML IV ONE (13:00)
[2019-07-26] MEDS: Thiamine 100 MG in IV D5W 50 ML IV SCH (18:59)
[2019-07-26] MEDS: Folic acid 1 MG in IV D5W 50 ML IV SCH (20:20)
[2019-07-26] MEDS: LORAZEPAM INJ 2 MG/ML VIAL IV PRN (23:08)
[2019-07-27] MEDS: IV NS 0.9% 1,000 ML IV PRN ×2 (06:06→18:18)
[2019-07-27] MEDS: SUCRALFATE 1 G TABLET PO SCH ×4 (07:30→21:09)
[2019-07-27] MEDS: GABAPENTIN 300 MG CAPSULE PO SCH ×3 (09:00→16:55)
[2019-07-27] MEDS: PANTOPRAZOLE 40 MG TABLET.DR PO SCH ×2 (09:00→21:09)
[2019-07-27] MEDS: CYANOCOBALAMIN 500 MCG TABLET PO SCH (09:00)
[2019-07-27] MEDS: RIFAXIMIN 550 MG TABLET PO SCH ×2 (09:00→16:55)
[2019-07-27] MEDS ORDERED: Sodium Phosphate 15 MMOL in IV D5W 250 ML IV ONE (10:30)
[2019-07-27] MEDS: Magnesium 1GM/D5W 100ML PREMIX 100 ML IV SCH ×2 (10:37→12:17)
[2019-07-27] MEDS: POTASSIUM CL. PREMIX PERIPHER. 50 ML IV SCH ×4 (10:38→20:21)
[2019-07-27] MEDS: LORAZEPAM INJ 2 MG/ML VIAL IV PRN (15:38)
[2019-07-27] MEDS: Thiamine 100 MG in IV D5W 50 ML IV SCH (18:18)
[2019-07-27] MEDS: Folic acid 1 MG in IV D5W 50 ML IV SCH (18:55)
[2019-07-27] MEDS: MVI ADULT 10ML VIAL = 1AMP 10 ML in IV NS 0.9% 1,000 ML IV PRN (20:50)
[2019-07-28] MEDS: RIFAXIMIN 550 MG TABLET PO SCH (08:20)
[2019-07-28] MEDS: SUCRALFATE 1 G TABLET PO SCH ×2 (08:21→11:12)
[2019-07-28] MEDS: PANTOPRAZOLE 40 MG TABLET.DR PO SCH (08:21)
[2019-07-28] MEDS: GABAPENTIN 300 MG CAPSULE PO SCH ×2 (08:21→12:20)
[2019-07-28] MEDS: CYANOCOBALAMIN 500 MCG TABLET PO SCH (08:21)
[2019-07-28] MEDS: POTASSIUM CHLORIDE 20 MEQ TAB.PRT.SR PO SCH ×2 (11:12→12:21)
[2019-07-28] MEDS: Magnesium 1GM/D5W 100ML PREMIX 100 ML IV SCH ×2 (11:13→12:20)
[2019-07-28] MEDS: IV NS 0.9% 1,000 ML IV PRN (11:39)
== END 2019-07-28 14:11 | disposition home or self-care (01) | DRG 439 ==
DX: K85.20 Alcohol induced acute pancreatitis without necrosis or infection (principal); E46 Unspecified protein-calorie malnutrition; E87.1 Hypo-osmolality and hyponatremia; F10.239 Alcohol dependence with withdrawal, unspecified; E83.42 Hypomagnesemia; E83.39 Other disorders of phosphorus metabolism; D63.8 Anemia in other chronic diseases classified elsewhere; D69.59 Other secondary thrombocytopenia; E66.9 Obesity, unspecified; K21.9 Gastro-esophageal reflux disease without esophagitis; K76.0 Fatty (change of) liver, not elsewhere classified; K74.60 Unspecified cirrhosis of liver; K80.20 Calculus of gallbladder without cholecystitis without obstruction; K86.0 Alcohol-induced chronic pancreatitis; E86.1 Hypovolemia; R73.9 Hyperglycemia, unspecified; Z87.11 Personal history of peptic ulcer disease; E87.6 Hypokalemia; Z68.24 Body mass index [BMI] 24.0-24.9, adult; K70.9 Alcoholic liver disease, unspecified; Y90.0 Blood alcohol level of less than 20 mg/100 ml